=== PATIENT | female | born 1975 | race Caucasian/White ===

== ENCOUNTER 2017-11-15 23:29 | Emergency (ER) | payer OTHER, MEDICAID, SELFPAY ==
[2017-11-15 23:40] VITALS: BP 136/92; PULSE 118; RESP 18; TEMP 36.8; O2SAT 97; BMI 26.6
[2017-11-16] MEDS: TET,DIPH,PERTUSS(ACELL),VAC/PF 0.5 ML SYRINGE IM (00:14)
--- NOTE | 2017-11-16 00:14 | ED_ITS ---
HPI - Wound/Laceration General Chief Complaint: Wound/Laceration Stated Complaint: CUT RIGHT THIGH THINKS NEEDS STITCHES Time Seen by Provider: 11/15/17 23:46 Source: patient, family and RN notes reviewed Mode of arrival: ambulatory Limitations: no limitations History of Present Illness HPI narrative: Patient is a 42 year female who presents with right leg laceration. She was cutting a sandwich on the knife slipped cutting her right eye. She was wearing shorts. Onset (ago): minute(s) Place: home Context: accidental Associated symptoms: none Related Data Home Medications Medication Instructions Recorded Confirmed venlafaxine 2 tab PO BID #0 07/04/17 11/03/17 trazodone 100 mg PO HS #0 08/11/17 11/03/17 hydroxyzine pamoate 25 mg capsule 25 mg PO Q6-8H PRN 11/03/17 11/03/17 ranitidine 150 mg capsule 150 mg PO BEDTIME 11/03/17 11/03/17 Previous Rx's Medication Instructions Recorded ibuprofen 800 mg tablet 800 mg PO TID #60 tab 11/03/17 methylprednisolone 4 mg tablets in See Label Instructions PO PER PKG 11/03/17 a dose pack DIR #21 each Allergies Allergy/AdvReac Type Severity Reaction Status Date / Time meperidine [From DEMEROL] Allergy Mild Verified 11/15/17 23:45 Review of Systems Review of Systems All systems reviewed & are unremarkable except as noted in HPI and below Constitutional Denies chills, Denies fever(s), Denies lethargy and Denies weakness Cardiovascular Denies irregular heart rhythm, Denies palpitations and Denies dyspnea on exertion Respiratory Denies cough and Denies dyspnea on exertion Gastrointestinal Gastrointestinal: Denies abdominal pain, Denies diarrhea, Denies nausea and Denies vomiting Musculoskeletal Denies back pain, Denies muscle weakness, Denies numbness and Denies tingling Integumentary/Breasts Reports as per HPI Neurologic Denies numbness, Denies tingling and Denies weakness Endocrine Denies palpitations [facility] Social History Smoking Status: Never smoker Exam Narrative Exam Narrative: GENERAL: Young female extremely anxious CARDIOVASCULAR: peripheral pulses in tact, cap refill <2 sec RESPIRATORY: No respiratory distress, speaks in full sentences without difficulty EXTREMITIES: Normal range of motion, no clubbing or edema. Neurovascularly intact NEUROLOGICAL: Cranial nerves II through XII grossly intact. Normal gait and speech. SKIN: Right thigh a 4 cm last patient with good skin approximation small amount of adipose tissue exposed. Procedures Joint Aspiration/Injection Laceration 1: Site: lower extremity (Right lateral leg) Side (If applicable): right Size (cm): 4 Description: linear Depth: simple, single layer Local Anesthetic: lidocaine 1% and with epi Amount of anesthesia used (mL): 5 Pre-repair: irrigated extensively Skin layer closed with: nylon Size (cm): 4-0 Number of sutures: 3 Technique: simple, interrupted Course Orders Ordered: Discontinued Medications Diphtheria/Tetanus/Acell Pertussis (Adacel) 0.5 ml IM .ONCE ONE Stop: 11/16/17 00:13 Last Admin: 11/16/17 00:14 Dose: 0.5 ml Last Vital Signs Temp 98.3 F 11/15/17 23:40 Pulse 118 H 11/15/17 23:40 Resp 18 11/15/17 23:40 BP 136/92 H 11/15/17 23:40 Pulse Ox 97 11/15/17 23:40 Discharge Plan Departure Patient Disposition: Home, Self-Care Clinical Impression: Laceration of leg, right Discharge Date/Time: 11/16/17 00:32 Interventions: ED Discharge Assessment Last Done: 11/16/17 00:31 Instructions: DI for Laceration Repair -- Simple Activity Restrictions/Additional Instructions: 1. Have your suture removed in 5-7 days, you may go to walk-in clinic, return to the ER or call your primary care physician. 2. No soaking in water including dishes, bathtubs, Lakes, swimming pools etc 3. Signs of infection include, but not limited to, increased redness, increased swelling, increased pain, fever and purulent drainage, if the symptoms should arise, you may need an antibiotic and you should have a reevaluation either by your primary care provider or by the emergency department. Prescriptions: No Action hydroxyzine pamoate 25 mg capsule 25 mg PO Q6-8H PRNRF: 0 ranitidine HCl 150 mg capsule 150 mg PO BEDTIME RF: 0 ibuprofen 800 mg tablet 800 mg PO TID Qty: 60 RF: 2 methylprednisolone 4 mg tablets,dose pack See Label Instructions PO PER PKG DIR Qty: 21 RF: 0 venlafaxine 75 MG tablet 2 tab PO BID Qty: 0 RF: 0 trazodone 50 MG tablet 100 mg PO HS Qty: 0 RF: 0
== END 2017-11-16 00:32 | disposition home or self-care (01) ==
PROVIDERS: Emergency Provider Emergency Medicine
DX: S71.111A Laceration without foreign body, right thigh, initial encounter (principal); W26.0XXA Contact with knife, initial encounter
CPT/HCPCS: 12002; 90471; 99283; 90715

== ENCOUNTER → 2018-02-02 20:16 | Outpatient (CLI) | payer OTHER, MEDICAID, SELFPAY ==
--- NOTE | 2018-02-02 20:23 | DI.RAD.S_ITS ---
PROCEDURE: XR SHOULDER RT MIN 2V INDICATIONS: pain in Right shoulder TECHNIQUE: 3 views of the shoulder were acquired. COMPARISON: None. FINDINGS: Bones: No fractures or dislocations. No suspicious bony lesions but there is a relatively prominent degree of degenerative osteophytic change at the a.c. joint. Visualized ribs appear intact. Soft tissues: No suspicious soft tissue calcifications. IMPRESSION: A.c. joint osteoarthritis is relatively prominent, no trauma found. Dictated by: Dave Ferrell M.D. on 02/03/2018 at 8:55 Approved by: Dave Ferrell M.D. on 02/03/2018 at 8:55
== END ==
PROVIDERS: Visit Provider Physician Assistant
DX: M19.011 Primary osteoarthritis, right shoulder (principal); M25.511 Pain in right shoulder
CPT/HCPCS: 73030

== ENCOUNTER → 2018-02-10 20:39 | Outpatient (CLI) | payer OTHER, MEDICAID, SELFPAY ==
--- NOTE | 2018-02-10 20:44 | DI.RAD.S_ITS ---
PROCEDURE: XR SACRUM COCCYX MIN 2V INDICATIONS: LOW BACK STIFFNESS, PAIN TECHNIQUE: 3 views of the sacrum and coccyx acquired. COMPARISON: None. FINDINGS: Bones: No fractures or dislocations. No suspicious bony lesions. Soft tissues: Visualized bowel gas pattern is normal. No suspicious soft tissue densities. IMPRESSION: No evidence of sacroiliitis or ankylosis. No fracture or dislocation. Dictated by: Eligio Donaldson M.D. on 02/10/2018 at 21:06 Approved by: Eligio Donaldson M.D. on 02/10/2018 at 21:07
== END ==
PROVIDERS: Visit Provider Physician Assistant
DX: M53.88 Other specified dorsopathies, sacral and sacrococcygeal region (principal); M54.5 Low back pain
CPT/HCPCS: 72220

== ENCOUNTER → 2018-02-17 17:41 | Outpatient (CLI) | payer OTHER, MEDICAID, SELFPAY ==
--- NOTE | 2018-02-17 17:45 | DI.RAD.S_ITS ---
PROCEDURE: XR HIP W PEL IF DONE LT MIN 4V INDICATIONS: JOINT PAIN TECHNIQUE: AP pelvis with lateral view(s) of the left and right hip(s). COMPARISON: [facility], , XR SACRUM COCCYX MIN 2V, 02/10/2018, 20:21. FINDINGS: Bones: No fractures or dislocations. Pelvic ring appears intact. No suspicious bony lesions. Soft tissues: The visualized bowel gas pattern is normal. No suspicious soft tissue calcifications. IMPRESSION: No definite radiographic abnormality. If pain persists, consider cross sectional imaging such as CT or MRI for further assessment. Dictated by: Eladio Mcdermott [facility] Interpreted: Madison Clements MD on 02/18/2018 at 9:55 Approved by: Madison Clements M.D. on 02/18/2018 at 12:00
[2018-02-17 18:14] LABS: Add Manual Diff / Slide Review NO; Basophils Percent Auto 0.7 % (0-2); Eosinophils Percent Auto 1.4 % (2-4); Hematocrit 43.1 % (36-46); Hemoglobin 14.2 g/dL (12.0-16.0); Lymphocytes Percent Auto 32.2 % (25-40); Mean Corpuscular HGB Conc 32.9 % (30-36); Mean Corpuscular Hemoglobin 30.7 PG (26-34); Mean Corpuscular Volume 93.1 fL (80-100); Monocytes Percent Auto 9.2 % (3-14); Neutrophils Absolute Auto 4100 /uL (3000-5900); Neutrophils Percent Auto 56.5 % (50-75); Platelet Count 347 X10^3/uL (150-400); Red Blood Cell Count 4.63 X10^6/uL (4.0-5.2); Red Cell Distribution Width 12.7 % (11.6-14.8); White Blood Cell Count 7.2 X10^3/uL (4.5-11.0)
[2018-02-17 18:42] LABS: Erythrocyte Sedimentation Rate 6 MM/HR (0-20)
[2018-02-17 19:14] LABS: C-Reactive Protein Quant < 0.5 mg/dL (<1.0)
[2018-02-17 19:38] LABS: Thyroid Stimulating Hormone 1.95 uIU/mL (0.47-4.68)
== END ==
PROVIDERS: PCP Family Medicine; Visit Provider Physician Assistant
DX: M25.50 Pain in unspecified joint (principal)
CPT/HCPCS: 36415; 73522; 84443; 85025; 85651; 86140

== ENCOUNTER 2018-03-08 22:56 | Emergency (ER) | payer OTHER, MEDICAID, SELFPAY ==
[2018-03-08 23:00] VITALS: BP 123/71; PULSE 91; RESP 14; TEMP 36.9; O2SAT 99
--- NOTE | 2018-03-09 00:04 | PC.NURSE ---
2347: Patient walked out of the ER with steady gait.
--- NOTE | 2018-03-09 00:05 | PC.NURSE ---
Patient out at Nurse's Station, states she is concerned about her long wait time. States, why is it taking so long for the doctor to see me. I'm in so much pain...but I'm not here for pain meds. I'm just here to figure out what's wrong. I explained to her that the doctor would be in to see her as soon as he is able. She returned to her room with a steady gait.
--- NOTE | 2018-03-09 00:07 | PC.NURSE ---
Patient at nurse's station again, walking with steady gait, A&Ox4. States she is concerned about wait time and that nothing has been done yet. I answered her questions and listened to her concerns. She states I might want to leave and get an ambulance to take me to [facility]. I told her I could not make her stay and she may walk out if she would like to leave.
--- NOTE | 2018-03-09 00:10 | PC.NURSE ---
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
--- NOTE | 2018-03-09 00:10 | PC.NURSE ---
Patient again pacing in hallway and expressing concerns about wait time and pain at nurse's station. Stating, somebody needs to get me an ambulance to [facility]. I explained to her that we will not be calling an ambulance or transferring her since she has not seen a provider. I explained to her that should she decide she wants to go to [facility] then she will not be held here and can leave.
--- NOTE | 2018-03-09 00:13 | PC.NURSE ---
patient reports intermittent loss of coordination, none at this time. No other associated symptoms besides headache.
== END 2018-03-08 23:47 | disposition left against medical advice (07) ==
PROVIDERS: Emergency Provider Emergency Medicine; PCP Family Medicine
DX: R51 Headache (principal)
CPT/HCPCS: 99281; 99282

== ENCOUNTER 2018-03-13 02:33 | Emergency (ER) | payer OTHER, MEDICAID, SELFPAY ==
[2018-03-13 02:35] VITALS: BP 139/92; PULSE 120; RESP 18; TEMP 36.9; O2SAT 97
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
[2018-03-13] MEDS: IBUPROFEN 400 MG TABLET 800 MG PO (03:13)
[2018-03-13 03:24] VITALS: BP 130/86; PULSE 108; RESP 18; TEMP 36.8; O2SAT 98
== END 2018-03-13 03:26 | disposition home or self-care (01) ==
PROVIDERS: Emergency Provider Emergency Medicine; PCP Family Medicine
DX: S00.03XA Contusion of scalp, initial encounter (principal); F10.929 Alcohol use, unspecified with intoxication, unspecified; Y04.2XXA Assault by strike against or bumped into by another person, initial encounter
CPT/HCPCS: 99282; 99283

== ENCOUNTER 2018-03-15 18:26 | Emergency (ER) | payer OTHER, MEDICAID, SELFPAY ==
[2018-03-15 18:29] VITALS: BP 141/87; PULSE 110; RESP 22; TEMP 36.4; O2SAT 99
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
--- NOTE | 2018-03-15 20:26 | DI.CT.S_ITS ---
PROCEDURE: CT FACIAL BONES WO CON INDICATIONS: Left periorbital, bahai, mandible eccymoses/contusions 03/13 TECHNIQUE: Noncontrast 2.5 mm thick axial images acquired from the mandible through the frontal sinuses, with coronal and sagittal reformatting. For radiation dose reduction, the following was used: automated exposure control, adjustment of mA and/or kV according to patient size. COMPARISON: None. FINDINGS: Image quality: Excellent. Bones and teeth: Orbital neville are intact. Sinus neville show no fracture or deformity. Nasal bones and septum are intact. Mild anterior nasoseptal deviation to the right is seen. There is mid nasal septal deviation to the left with a bony spur. Visualized portions of the mandible demonstrate no fractures or subluxation. Zygomatic arches are intact. Pterygoid plates are intact. Visualized portions of the skull base and auditory canals are intact. Sinuses: 8mm retention cyst versus mucocele is noted in medial aspect of right maxillary sinus. Rest of paranasal sinuses are aerated, without fluid levels, mucosal thickening, or mucoceles. Mastoid air cells are aerated. Soft tissues: No edema, masses, or fluid collections. No enlarged lymph nodes. No soft tissue lacerations or debris. Vascular: Visualized vascular structures appear normal in the absence of contrast. Bony vascular foramina and canals are intact. IMPRESSION: No acute facial bone or nasal bone fracture. No orbital wall fracture. Small retention cyst versus mucocele in right maxillary sinus. Rest of bilateral paranasal sinuses are well aerated. Dictated by: Eligio Donaldson M.D. on 03/15/2018 at 21:04 Approved by: Eligio Donaldson M.D. on 03/15/2018 at 21:08
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
[2018-03-15] MEDS: IBUPROFEN 400 MG TABLET 800 MG PO (20:35)
[2018-03-15 21:37] VITALS: BP 140/91; PULSE 86; RESP 16; TEMP 36.7; O2SAT 100
== END 2018-03-15 21:38 | disposition home or self-care (01) ==
PROVIDERS: Emergency Provider Internal Medicine; PCP Family Medicine
DX: S00.83XA Contusion of other part of head, initial encounter (principal); S20.219A Contusion of unspecified front wall of thorax, initial encounter; S30.1XXA Contusion of abdominal wall, initial encounter; S20.229A Contusion of unspecified back wall of thorax, initial encounter; Y04.8XXA Assault by other bodily force, initial encounter
CPT/HCPCS: 70486; 99283; 99284

== ENCOUNTER 2018-05-20 18:59 | Emergency (ER) | payer OTHER, MEDICAID, SELFPAY ==
[2018-05-20 19:04] VITALS: BP 141/93; PULSE 108; RESP 15; TEMP 37; O2SAT 94; BMI 27.4
== END 2018-05-20 19:19 | disposition left against medical advice (07) ==
PROVIDERS: Emergency Provider Emergency Medicine; PCP Student in an Organized Health Care Education/Training Program
DX: M54.2 Cervicalgia (principal)
CPT/HCPCS: 99281; 99282

== ENCOUNTER → 2018-07-15 20:28 | Outpatient (CLI) | payer OTHER, MEDICAID, SELFPAY ==
[2018-07-15 20:48] LABS: Add Manual Diff / Slide Review NO; Basophils Percent Auto 0.7 % (0-2); Eosinophils Percent Auto 1.5 % (2-4); Hemoglobin 13.7 g/dL (12.0-16.0); Lymphocytes Percent Auto 17.8 % (25-40); Mean Corpuscular HGB Conc 33.4 % (30-36); Mean Corpuscular Hemoglobin 31.6 PG (26-34); Mean Corpuscular Volume 94.6 fL (80-100); Monocytes Percent Auto 8.3 % (3-14); Neutrophils Absolute Auto 6100 /uL (1500-7000); Neutrophils Percent Auto 71.7 % (50-75); Platelet Count 353 X10^3/uL (150-400); Red Blood Cell Count 4.33 X10^6/uL (4.0-5.2); Red Cell Distribution Width 12.4 % (11.6-14.8); White Blood Cell Count 8.4 X10^3/uL (4.5-11.0)
[2018-07-15 21:05] LABS: Alanine Aminotransferase 24 IU/L (9-52); Albumin 4.6 g/dL (3.5-5.0); Albumin Globulin Ratio 1.4 (1.0-2.8); Alkaline Phosphatase 56 U/L (38-126); Amylase 82 U/L (30-110); Aspartate Aminotransferase 24 IU/L (14-36); Bilirubin Total 0.3 mg/dL (0.2-1.3); Blood Urea Nitrogen 12 mg/dL (7-17); Calcium 9.5 mg/dL (8.4-10.2); Carbon Dioxide 30 mmol/L (22-32); Chloride 99 mmol/L (98-107); Estimated Glomerular Filt Rate > 60.0 mL/min (>60); Globulin 3.4 g/dL (1.7-4.1); Glucose 100 mg/dL (70-100); HEMOLYSIS < 15 (0-50); Lipase 72 U/L (23-300); Potassium 4.9 mmol/L (3.4-5.1); Sodium 138 mmol/L (137-145)
== END ==
PROVIDERS: Family Provider Student in an Organized Health Care Education/Training Program; PCP Student in an Organized Health Care Education/Training Program; Visit Provider Physician Assistant
DX: R10.9 Unspecified abdominal pain (principal)
CPT/HCPCS: 36415; 80053; 82150; 83690; 85025

== ENCOUNTER 2018-07-24 17:39 | Emergency (ER) | payer OTHER, MEDICAID, SELFPAY ==
[2018-07-24 18:09] VITALS: BP 135/84; PULSE 99; RESP 16; TEMP 37.5; O2SAT 100; BMI 27.4
[2018-07-24 18:30] LABS: Add Manual Diff / Slide Review NO; Basophils Absolute Auto 0 /uL (0-100); Basophils Percent Auto 0.7 % (0-2); Eosinophils Absolute Auto 100 /uL (0-450); Eosinophils Percent Auto 1.9 % (2-4); Hematocrit 40.7 % (36-46); Hemoglobin 13.4 g/dL (12.0-16.0); Lymphocytes Absolute Auto 1900 /uL (1100-4500); Lymphocytes Percent Auto 31.4 % (25-40); Mean Corpuscular Hemoglobin 31.3 PG (26-34); Mean Corpuscular Volume 94.9 fL (80-100); Monocytes Absolute Auto 400 /uL (0-900); Monocytes Percent Auto 6.4 % (3-14); Neutrophils Absolute Auto 3700 /uL (1500-7000); Neutrophils Percent Auto 59.6 % (50-75); Platelet Count 361 X10^3/uL (150-400); Red Blood Cell Count 4.29 X10^6/uL (4.0-5.2); Red Cell Distribution Width 12.2 % (11.6-14.8); White Blood Cell Count 6.2 X10^3/uL (4.5-11.0)
[2018-07-24 18:39] LABS: Alanine Aminotransferase 27 IU/L (9-52); Albumin 4.4 g/dL (3.5-5.0); Albumin Globulin Ratio 1.4 (1.0-2.8); Alkaline Phosphatase 46 U/L (38-126); Aspartate Aminotransferase 22 IU/L (14-36); Bilirubin Total 0.3 mg/dL (0.2-1.3); Blood Urea Nitrogen 12 mg/dL (7-17); Calcium 8.9 mg/dL (8.4-10.2); Carbon Dioxide 28 mmol/L (22-32); Chloride 101 mmol/L (98-107); Estimated Glomerular Filt Rate > 60.0 mL/min (>60); Globulin 3.1 g/dL (1.7-4.1); Glucose 134 mg/dL (70-100); HEMOLYSIS < 15 (0-50); Lipase 62 U/L (23-300); Potassium 3.9 mmol/L (3.4-5.1); Sodium 138 mmol/L (137-145); Total Protein 7.5 g/dL (6.3-8.2)
--- NOTE | 2018-07-24 19:11 | ED.ABDPAIN ---
HPI - Abdominal Pain General Chief Complaint: Abdominal Pain Stated Complaint: gull bladder pain Time Seen by Provider: 07/24/18 17:57 Source: patient Mode of arrival: ambulatory Limitations: no limitations History of Present Illness HPI narrative: patient is a 43-year-old female who presents with right upper quadrant pain. It has been off and on for the last 3 days. She says she feels full when she eats. No nausea or vomiting. sHe has had any fever. The pain is nonradiating. She sometimes has intermittent right shoulder pain anyway difficult to tell if it is associated. Now complaining that the IV is hurting her arm. MD complaint: abdominal pain Onset (ago): day(s) (3) Pain Consistency: intermittent Location: RUQ Related Data Home Medications Medication Instructions Recorded Confirmed trazodone 100 mg PO HS #0 08/11/17 07/15/18 hydroxyzine pamoate 25 mg capsule 25 mg PO Q6-8H PRN 11/03/17 07/15/18 ranitidine 150 mg capsule 150 mg PO BEDTIME 11/03/17 07/15/18 alprazolam 0.5 mg tablet 0.5 mg PO BID 07/15/18 07/15/18 Previous Rx's Medication Instructions Recorded hydrocortisone 2.5 % topical cream 1 applictn TOP BID #20 gram 03/30/18 venlafaxine 75 mg tablet 225 mg PO BID #180 tab 04/07/18 ibuprofen 800 mg tablet 800 mg PO Q8H PRN 30 Days #90 tab 04/26/18 methocarbamol 750 mg tablet 750 mg PO BEDTIME #30 tab 06/22/18 Allergies Allergy/AdvReac Type Severity Reaction Status Date / Time meperidine [From DEMEROL] Allergy Mild Itching Verified 07/24/18 18:14 Review of Systems Review of Systems GENERAL: Denies chills, fatigue, malaise, fever, sweats, travel HEENT: Denies sinus pain, ear pain, sore throat, difficulty swallowing, neck pain RESPIRATORY: Denies dyspnea, cough, wheezing, hemoptysis, sputum. CARDIOVASCULAR: Denies chest pain, palpitations, orthopnea, edema GASTROINTESTINAL: See HPI : Denies dysuria, frequency, incontinence, hematuria, urinary retention, flank pain. MUSCULOSKELETAL: Denies weakness, joint pain, or bony pain SKIN: No rash, no erythema, no pruritus NEUROLOGIC: Denies weakness, dizziness, headache, numbness, change in speech, confusion PSYCHIATRIC: No concerning psychosocial issues. 12 point review of systems is negative except for those stated above and HPI PFSH Medical History Alcohol abuse (Acute) Chronic right shoulder pain (Chronic) Depression (Chronic) Fibromyalgia (Chronic) Tendinitis (Chronic) Surgical History History of ankle surgery (Resolved) Social History Smoking Status: Never smoker alcohol intake: current Exam Initial Vital Signs Initial Vital Signs: Vital Signs Temperature 99.5 F 07/24/18 18:09 Pulse Rate 99 H 07/24/18 18:09 Respiratory Rate 16 07/24/18 18:09 Blood Pressure 135/84 07/24/18 18:09 Pulse Oximetry 100 07/24/18 18:09 GENERAL: Well-appearing, well-nourished and in no acute distress. coloring with daughter HEENT: Head atraumatic,EOMI, pupils reactive, CARDIOVASCULAR: Regular rate and rhythm without murmurs, rubs or gallops. RESPIRATORY: Breath sounds equal bilaterally, no wheezes rales or rhonchi. ABDOMEN: Soft, mild right upper quadrant pain mild epigastric pain no guarding or rebound : No CVA tenderness EXTREMITIES: Normal range of motion, no clubbing or edema. Neurovascularly intact NEUROLOGICAL: Alert and oriented x4.Normal gait and speech. Cranial nerves II through XII grossly intact. SKIN: Warm, dry, no laceration, no petechiae, no rashes or lesions. Course Orders Ordered: ED Orders 07/24/18 18:15 Complete Blood Count AUTO DIFF Stat Comprehensive Metabolic Panel Stat Lipase Stat 07/24/18 19:14 US abdomen complete Stat Discontinued Medications Ketorolac Tromethamine (Toradol) 30 mg IV NOW ONE Stop: 07/24/18 19:15 Last Admin: 07/24/18 19:20 Dose: 30 mg Vital Signs - 8 hr 07/24/18 18:09 07/24/18 19:25 Temperature 99.5 F Pulse Rate 99 H 82 Respiratory Rate 16 16 Blood Pressure 135/84 Blood Pressure [Left Arm] 131/79 Pulse Oximetry 100 99 MDM - Abdominal Pain Lab Data Attestation: I reviewed the patient's lab results. Result diagrams: 07/24/18 18:15 07/24/18 18:15 Lab Results 07/24/18 07/24/18 Range/Units 18:15 18:15 WBC 6.2 (4.5-11.0) X10^3/uL RBC 4.29 (4.0-5.2) X10^6/uL Hgb 13.4 (12.0-16.0) g/dL Hct 40.7 (36-46) % MCV 94.9 (80-100) fL MCH 31.3 (26-34) PG MCHC 33.0 (30-36) % RDW 12.2 (11.6-14.8) % Plt Count 361 (150-400) X10^3/uL Neut % (Auto) 59.6 (50-75) % Lymph % (Auto) 31.4 (25-40) % Webster % (Auto) 6.4 (3-14) % Eos % (Auto) 1.9 L (2-4) % Baso % (Auto) 0.7 (0-2) % Neut # (Auto) 3700 (8510-6445) /uL Lymph # (Auto) 1900 (3040-3572) /uL Webster # (Auto) 400 (0-900) /uL Eos # (Auto) 100 (0-450) /uL Baso # (Auto) 0 (0-100) /uL Sodium 138 (137-145) mmol/L Potassium 3.9 (3.4-5.1) mmol/L Chloride 101 (98-107) mmol/L Carbon Dioxide 28 (22-32) mmol/L BUN 12 (7-17) mg/dL Creatinine 1.00 (0.52-1.04) mg/dL Estimated GFR > 60.0 (>60) mL/min BUN/Creatinine Ratio 12.0 (6-22) Glucose 134 H (70-100) mg/dL Calcium 8.9 (8.4-10.2) mg/dL Total Bilirubin 0.3 (0.2-1.3) mg/dL AST 22 (14-36) IU/L ALT 27 (9-52) IU/L Alkaline Phosphatase 46 (38-126) U/L Total Protein 7.5 (6.3-8.2) g/dL Albumin 4.4 (3.5-5.0) g/dL Globulin 3.1 (1.7-4.1) g/dL Albumin/Globulin Ratio 1.4 (1.0-2.8) Lipase 62 (23-300) U/L Imaging Data US - abdomen: Radiologist's impression: PROCEDURE: US ABDOMEN COMPLETE INDICATIONS: RIGHT UPPER QUADRANT PAIN TECHNIQUE: Real-time scanning was performed of the abdominal and retroperitoneal organs, with image documentation. COMPARISON: None. FINDINGS: Liver: Liver is normal in size and homogeneous in echotexture. Gallbladder: The gallbladder wall measures 1.9 mm in diameter. Mobile stones are present within the gallbladder fundus. No pericholecystic fluid or sonographic Hairston sign. Biliary ducts: Intrahepatic bile ducts are non-dilated. Extrahepatic bile duct caliber measures 5.0 mm. Normal is 6-7 mm or less in diameter, or 10 mm or less post-cholecystectomy. Pancreas: Visualized portions of the pancreas are sonographically normal. The distal pancreas is nonvisualized due to to overlying bowel gas. Spleen: Spleen is normal in size and homogeneous in echotexture. Kidneys: Kidneys are normal in size and echotexture. Right kidney measures 11.3 cm long; left kidney measures 10.1 cm long. No hydronephrosis or nephrolithiasis. No solid masses. Aorta: Visualized aorta is normal in caliber at less than 3 cm. Iliacs: Proximal common iliac arteries are normal in caliber at less than 2.5 cm. IVC: Intrahepatic inferior vena cava is patent. Miscellaneous: No free abdominal fluid. IMPRESSION: Cholelithiasis. No findings to suggest choledocholithiasis or acute cholecystitis. Dictated by: Mally Cardona M.D. on 07/24/2018 at 20:26 MDM Narrative Medical decision making narrative: the patient has no sign of obstruction, bilirubin is normal. No sign of acute cholecystitis no fever or leukocytosis. At this time recommend outpatient follow-up and elective surgery. Discussed warning signs and when to return to the ED. Discharge Plan Departure Patient Disposition: Home Clinical Impression: Cholelithiasis Discharge Date/Time: 07/24/18 20:30 Interventions: ED Discharge Assessment Last Done: 07/24/18 20:33 Instructions: DI for Gallstones Activity Restrictions/Additional Instructions: *You have been diagnosed with gallstone *What to do: you will likely need on elective gallbladder surgery. At this time it is nonemergent. You do have gallstones noted. They are not causing any blockage or infection at this. *Continue to take medications as directed Motrin 800 mg every 8 hr if needed for pain *Follow up with your primary care provider in 2-3 days *Return to ER if you should have fever, increasing right upper quadrant pain, persistent vomiting or any new, worsening or concerning symptoms Prescriptions: No Action alprazolam 0.5 mg tablet 0.5 mg PO BID RF: 0 hydroxyzine pamoate 25 mg capsule 25 mg PO Q6-8H PRNRF: 0 ranitidine HCl 150 mg capsule 150 mg PO BEDTIME RF: 0 hydrocortisone 2.5 % cream 1 applictn TOP BID Qty: 20 RF: 0 trazodone 50 MG tablet 100 mg PO HS Qty: 0 RF: 0 venlafaxine 75 mg tablet 225 mg PO BID Qty: 180 RF: 3 ibuprofen 800 mg tablet 800 mg PO Q8H PRN (Reason: pain) 30 Days Qty: 90 RF: 2 methocarbamol 750 mg tablet 750 mg PO BEDTIME Qty: 30 RF: 5 Referrals: Chevy Marmolejo MD [Primary Care Provider] -
--- NOTE | 2018-07-24 19:14 | DI.US.S_ITS ---
PROCEDURE: US ABDOMEN COMPLETE INDICATIONS: RIGHT UPPER QUADRANT PAIN TECHNIQUE: Real-time scanning was performed of the abdominal and retroperitoneal organs, with image documentation. COMPARISON: None. FINDINGS: Liver: Liver is normal in size and homogeneous in echotexture. Gallbladder: The gallbladder wall measures 1.9 mm in diameter. Mobile stones are present within the gallbladder fundus. No pericholecystic fluid or sonographic Hairston sign. Biliary ducts: Intrahepatic bile ducts are non-dilated. Extrahepatic bile duct caliber measures 5.0 mm. Normal is 6-7 mm or less in diameter, or 10 mm or less post-cholecystectomy. Pancreas: Visualized portions of the pancreas are sonographically normal. The distal pancreas is nonvisualized due to to overlying bowel gas. Spleen: Spleen is normal in size and homogeneous in echotexture. Kidneys: Kidneys are normal in size and echotexture. Right kidney measures 11.3 cm long; left kidney measures 10.1 cm long. No hydronephrosis or nephrolithiasis. No solid masses. Aorta: Visualized aorta is normal in caliber at less than 3 cm. Iliacs: Proximal common iliac arteries are normal in caliber at less than 2.5 cm. IVC: Intrahepatic inferior vena cava is patent. Miscellaneous: No free abdominal fluid. IMPRESSION: Cholelithiasis. No findings to suggest choledocholithiasis or acute cholecystitis. Dictated by: Mally Cardona M.D. on 07/24/2018 at 20:26 Approved by: Mally Cardona M.D. on 07/24/2018 at 20:30
[2018-07-24] MEDS: KETOROLAC 60 MG/2 ML VIAL 30 MG IV (19:20)
[2018-07-24 19:25] VITALS: BP 131/79; PULSE 82; RESP 16; O2SAT 99
== END 2018-07-24 20:30 | disposition home or self-care (01) ==
PROVIDERS: Emergency Medicine; Emergency Provider Emergency Medicine; PCP Student in an Organized Health Care Education/Training Program
DX: K80.20 Calculus of gallbladder without cholecystitis without obstruction (principal)
CPT/HCPCS: 36591; 76700; 80053; 83690; 85025; 96374; 99283; 99284; J1885

== ENCOUNTER → 2018-07-28 15:06 | Outpatient (CLI) | payer OTHER, MEDICAID, SELFPAY ==
[2018-07-28 16:11] LABS: Cholesterol 207 mg/dL (140-199); HDL Cholesterol 48 mg/dL (40-60); LDL Cholesterol Calculated 137 mg/dL (<100); Triglycerides 109 mg/dL (35-150)
== END ==
PROVIDERS: PCP Student in an Organized Health Care Education/Training Program; Visit Provider Student in an Organized Health Care Education/Training Program
DX: Z13.220 Encounter for screening for lipoid disorders (principal)
CPT/HCPCS: 36415; 80061

== ENCOUNTER 2018-08-08 13:43 | Emergency (ER) | payer OTHER, MEDICAID, SELFPAY ==
[2018-08-08 13:45] VITALS: BP 116/76; PULSE 90; RESP 16; TEMP 36.7; O2SAT 99; BMI 27.4
[2018-08-08 16:33] VITALS: BP 105/76; PULSE 89; RESP 21; O2SAT 95
--- NOTE | 2018-08-08 17:13 | ED.ABDPAIN ---
HPI - Abdominal Pain <Da Barcenas DO - Last Filed: 08/09/18 08:12> General Chief Complaint: Abdominal Pain Stated Complaint: GALLBLADDER PAIN Time Seen by Provider: 08/08/18 16:51 Source: patient Mode of arrival: ambulatory Limitations: no limitations History of Present Illness HPI narrative: Patient is a 43-year-old female with known gallbladder disease. This was determined by right upper quadrant ultrasound several weeks ago after she was having right upper quadrant pain. This is ordered by her primary doctor. She was given a prescription for tramadol. She states that over the past couple days she has had worsening right upper quadrant pain. No nausea. She did not take her pain medication today. She has a referral to see General surgery but has not seen them yet. She came in for further evaluation. Related Data Home Medications Medication Instructions Recorded Confirmed trazodone 100 mg PO HS #0 08/11/17 07/28/18 hydroxyzine pamoate 25 mg capsule 25 mg PO Q6-8H PRN 11/03/17 07/28/18 ranitidine 150 mg capsule 150 mg PO BEDTIME 11/03/17 07/28/18 alprazolam 0.5 mg tablet 0.5 mg PO BID 07/15/18 07/28/18 Previous Rx's Medication Instructions Recorded venlafaxine 75 mg tablet 225 mg PO BID #180 tab 04/07/18 methocarbamol 750 mg tablet 750 mg PO BEDTIME #30 tab 06/22/18 ibuprofen 800 mg tablet 800 mg PO Q8H PRN #90 tab 07/27/18 beclomethasone dipropionate 1 spray NASAL BID #25 gram 07/28/18 (aqueous) 42 mcg (0.042 %) nasal spray betamethasone dipropionate 0.05 % 1 applictn TOP BID #60 ml 07/28/18 lotion tramadol 50 mg tablet 50 mg PO BEDTIME 30 Days #30 tab 07/28/18 hydrocodone-acetaminophen 1 tab PO Q4-6H PRN #10 tab 08/08/18 Allergies Allergy/AdvReac Type Severity Reaction Status Date / Time meperidine [From DEMEROL] Allergy Mild Itching Verified 08/08/18 13:45 Review of Systems <DO Chris Brush Last Filed: 08/09/18 08:12> Constitutional Denies fever(s) and Denies headache(s) ENT Ears, Nose, Mouth, and Throat: Denies headache(s) Cardiovascular Denies chest pain and Denies dyspnea Respiratory Denies dyspnea Gastrointestinal Gastrointestinal: Reports abdominal pain, Denies change in bowel habits, Denies nausea and Denies vomiting Genitourinary Denies dysuria Musculoskeletal Denies myalgias and Denies arthralgias Integumentary/Breasts Denies lesions and Denies rash Neurologic Denies behavioral changes and Denies headache(s) Psychiatric Denies behavioral changes Hematologic/Lymphatic Comments: Not on anticoagulation Allergic/Immunologic Denies urticaria Exam <Da Barcenas DO - Last Filed: 08/09/18 08:12> Initial Vital Signs Initial Vital Signs: Vital Signs Temperature 98.1 F 08/08/18 13:45 Pulse Rate 90 08/08/18 13:45 Respiratory Rate 16 08/08/18 13:45 Blood Pressure 116/76 08/08/18 13:45 Pulse Oximetry 99 08/08/18 13:45 Const General: cooperative, comfortable, well developed, well groomed and No acute distress Orientation: alert, awake and oriented x3 HENMT Head: normal to inspection and normocephalic Resp Effort & Inspection: normal respiratory effort Auscultation: clear to auscultation bilaterally Cardio Rate: regular rate Rhythm: regular rhythm GI Inspection: non-distended Palpation: soft, No firm, No guarding, No rigid and tender (Right upper quadrant) Skin Lesions: no lesions Rashes: no rashes Neuro General: alert, awake and oriented x3 Extrem General: normal to inspection and capillary refill normal Psych Appearance: grossly normal and well kempt <Jhoan Jaquez DO - Last Filed: 08/09/18 00:27> Initial Vital Signs Initial Vital Signs: Vital Signs Temperature 98.1 F 08/08/18 13:45 Pulse Rate 90 08/08/18 13:45 Respiratory Rate 16 08/08/18 13:45 Blood Pressure 116/76 08/08/18 13:45 Pulse Oximetry 99 08/08/18 13:45 Course <Da Bracenas DO - Last Filed: 08/09/18 08:12> Orders Ordered: Discontinued Medications Hydrocodone Bitart/Acetaminophen (Vicodin Prepack) 1 bottle MISC SEEINSTR ONE Stop: 08/08/18 19:22 Last Admin: 08/08/18 19:41 Dose: 1 bottle Sodium Chloride (Normal Saline 0.9%) 1,000 mls @ 125 mls/hr IV CONT BRANDYN Last Infusion: 08/08/18 19:34 Dose: 125 mls/hr Admin: 08/08/18 17:50 Dose: 125 mls/hr Morphine Sulfate (Morphine) 4 mg IV NOW ONE Stop: 08/08/18 17:14 Last Admin: 08/08/18 17:49 Dose: 4 mg Vital Signs - 8 hr 08/08/18 16:33 08/08/18 19:31 Pulse Rate 89 80 Respiratory Rate 21 20 Blood Pressure [Left Arm] 105/76 115/75 Pulse Oximetry 95 98 <Jhoan Jaquez DO - Last Filed: 08/09/18 00:27> Course Narrative: 43-year-old female received in sign-out from Dr. Barcenas. I performed an independent history and physical and have no significant additions. Ultrasound shows stones but no suggestion of cholelithiasis. Labs are unremarkable and pain is controlled. Orders Ordered: Discontinued Medications Hydrocodone Bitart/Acetaminophen (Vicodin Prepack) 1 bottle MISC SEEINSTR ONE Stop: 08/08/18 19:22 Last Admin: 08/08/18 19:41 Dose: 1 bottle Sodium Chloride (Normal Saline 0.9%) 1,000 mls @ 125 mls/hr IV CONT BRANDYN Last Infusion: 08/08/18 19:34 Dose: 125 mls/hr Admin: 08/08/18 17:50 Dose: 125 mls/hr Morphine Sulfate (Morphine) 4 mg IV NOW ONE Stop: 08/08/18 17:14 Last Admin: 08/08/18 17:49 Dose: 4 mg Vital Signs - 8 hr 08/08/18 16:33 08/08/18 19:31 Pulse Rate 89 80 Respiratory Rate 21 20 Blood Pressure [Left Arm] 105/76 115/75 Pulse Oximetry 95 98 MDM - Abdominal Pain <Da Barcenas DO - Last Filed: 08/09/18 08:12> Lab Data Result diagrams: 08/08/18 17:10 08/08/18 17:10 Lab Results 08/08/18 08/08/18 08/08/18 Range/Units 17:10 17:10 17:10 WBC 6.0 (4.5-11.0) X10^3/uL RBC 4.66 (4.0-5.2) X10^6/uL Hgb 14.4 (12.0-16.0) g/dL Hct 43.5 (36-46) % MCV 93.4 (80-100) fL MCH 30.9 (26-34) PG MCHC 33.1 (30-36) % RDW 12.3 (11.6-14.8) % Plt Count 354 (150-400) X10^3/uL Neut % (Auto) 51.5 (50-75) % Lymph % (Auto) 39.4 (25-40) % [place] % (Auto) 5.9 (3-14) % Eos % (Auto) 2.4 (2-4) % Baso % (Auto) 0.8 (0-2) % Neut # (Auto) 3100 (3156-8165) /uL Lymph # (Auto) 2400 (2813-6802) /uL [place] # (Auto) 400 (0-900) /uL Eos # (Auto) 100 (0-450) /uL Baso # (Auto) 0 (0-100) /uL Sodium 144 (137-145) mmol/L Potassium 4.4 (3.4-5.1) mmol/L Chloride 102 (98-107) mmol/L Carbon Dioxide 30 (22-32) mmol/L BUN 10 (7-17) mg/dL Creatinine 0.80 (0.52-1.04) mg/dL Estimated GFR > 60.0 (>60) mL/min BUN/Creatinine Ratio 12.5 (6-22) Glucose 103 H (70-100) mg/dL Calcium 8.9 (8.4-10.2) mg/dL Total Bilirubin 0.3 (0.2-1.3) mg/dL AST 33 (14-36) IU/L ALT 51 (9-52) IU/L Alkaline Phosphatase 53 (38-126) U/L Total Protein 8.4 H (6.3-8.2) g/dL Albumin 4.7 (3.5-5.0) g/dL Globulin 3.7 (1.7-4.1) g/dL Albumin/Globulin Ratio 1.3 (1.0-2.8) Lipase 36 (23-300) U/L Point of care testing: Point of Care Testing Test Results Negative Urine Dip Bedside Urine Glucose Negative Bedside Urine Bilirubin - Negative Bedside Urine Ketone - Negative Urine Specific [place] 1.010 Bedside Urine Occult Blood - Negative Bedside Urine pH 7.0 Bedside Urine Protein - Negative Bedside Urine Urobilinogen - Negative Bedside Urine Nitrite - Negative Bedside Urine Leukocytes - Negative Esterase MDM Narrative Medical decision making narrative: Patient with known gallbladder disease. With right upper quadrant pain. Care turned over to night provider change of shift to follow up on ultrasound and disposition. <Jhoan Jaquez DO - Last Filed: 08/09/18 00:27> Medical Records Attestation: I reviewed the patient's medical records. Lab Data Attestation: I reviewed the patient's lab results. Lab Results 08/08/18 08/08/18 08/08/18 Range/Units 17:10 17:10 17:10 WBC 6.0 (4.5-11.0) X10^3/uL RBC 4.66 (4.0-5.2) X10^6/uL Hgb 14.4 (12.0-16.0) g/dL Hct 43.5 (36-46) % MCV 93.4 (80-100) fL MCH 30.9 (26-34) PG MCHC 33.1 (30-36) % RDW 12.3 (11.6-14.8) % Plt Count 354 (150-400) X10^3/uL Neut % (Auto) 51.5 (50-75) % Lymph % (Auto) 39.4 (25-40) % [place] % (Auto) 5.9 (3-14) % Eos % (Auto) 2.4 (2-4) % Baso % (Auto) 0.8 (0-2) % Neut # (Auto) 3100 (2232-8417) /uL Lymph # (Auto) 2400 (5757-8420) /uL [place] # (Auto) 400 (0-900) /uL Eos # (Auto) 100 (0-450) /uL Baso # (Auto) 0 (0-100) /uL Sodium 144 (137-145) mmol/L Potassium 4.4 (3.4-5.1) mmol/L Chloride 102 (98-107) mmol/L Carbon Dioxide 30 (22-32) mmol/L BUN 10 (7-17) mg/dL Creatinine 0.80 (0.52-1.04) mg/dL Estimated GFR > 60.0 (>60) mL/min BUN/Creatinine Ratio 12.5 (6-22) Glucose 103 H (70-100) mg/dL Calcium 8.9 (8.4-10.2) mg/dL Total Bilirubin 0.3 (0.2-1.3) mg/dL AST 33 (14-36) IU/L ALT 51 (9-52) IU/L Alkaline Phosphatase 53 (38-126) U/L Total Protein 8.4 H (6.3-8.2) g/dL Albumin 4.7 (3.5-5.0) g/dL Globulin 3.7 (1.7-4.1) g/dL Albumin/Globulin Ratio 1.3 (1.0-2.8) Lipase 36 (23-300) U/L Point of care testing: Point of Care Testing Test Results Negative Urine Dip Bedside Urine Glucose Negative Bedside Urine Bilirubin - Negative Bedside Urine Ketone - Negative Urine Specific [place] 1.010 Bedside Urine Occult Blood - Negative Bedside Urine pH 7.0 Bedside Urine Protein - Negative Bedside Urine Urobilinogen - Negative Bedside Urine Nitrite - Negative Bedside Urine Leukocytes - Negative Esterase Imaging Data US - abdomen: Radiologist's impression: [address] [address] Ultrasound Report Signed Patient: Genaro Piper MMR#: [id number] : 1975Acct:[id number] Age/Sex: 43 / FDate of Service: 08/08/18 Loc: ED Accession Number: [id number] Procedure: US abdomen limited Ordering Provider: Da Barcenas D.O. PROCEDURE: US ABDOMEN LIMITED INDICATIONS: RIGHT UPPER QUADRANT PAIN; KNOWN GALLSTONES TECHNIQUE: Real-time focused scanning was performed of the abdomen, with image documentation. COMPARISON: [facility], , US ABDOMEN COMPLETE, 07/24/2018, 19:41. FINDINGS: Gallstones are again seen at the gallbladder fundus, the gallbladder wall is not thickened at 2.1 mm. There is tenderness during sonographic palpation over the gallbladder. The common bile duct is normal in caliber at 5.5 mm. The pancreas could not be visualized due to bowel gas. IMPRESSION: Gallstones within the gallbladder lumen but no gallbladder wall thickening or adjacent pericholecystic free fluid or biliary distention. Followup elective nuclear medicine hepatobiliary scan may be warranted. Dictated by: Dave Ferrell M.D. on 08/08/2018 at 19:11 Approved by: Dave Ferrell M.D. on 08/08/2018 at 19:13 MDM Narrative Medical decision making narrative: Multiple etiologies for patient's symptoms considered including: [Cholecystitis, cholelithiasis, poorly functioning gallbladder versus other] Patient's symptoms improved or duration of stay with above-stated therapies. Findings and discharge diagnosis discussed with patient/family followed by verbalization of understanding Return precautions discussed with patient/family whom verbalize understanding. Discharge Plan Departure Patient Disposition: Home Clinical Impression: Colic, biliary Discharge Date/Time: 08/08/18 19:48 Interventions: ED Discharge Assessment Last Done: 08/08/18 19:47 Instructions: DI for Biliary Colic Activity Restrictions/Additional Instructions: 1. Drink plenty of fluids with frequent small sips. 2. For the next 24 hours a clear liquid diet is advised. After that please employ a brat diet which would include bananas, rice, apples, toast. 3. Please take medications as directed. 4. Please follow-up with your doctor in the next 1-2 days. Call the office for an appointment. 5. Please return to the emergency Department for any worsening or persistent symptoms, such as increasing pain or fever. Prescriptions: New hydrocodone-acetaminophen 5-325 mg tablet 1 tab PO Q4-6H PRN (Reason: pain) Qty: 10 RF: 0 No Action alprazolam 0.5 mg tablet 0.5 mg PO BID RF: 0 hydroxyzine pamoate 25 mg capsule 25 mg PO Q6-8H PRNRF: 0 ranitidine HCl 150 mg capsule 150 mg PO BEDTIME RF: 0 trazodone 50 MG tablet 100 mg PO HS Qty: 0 RF: 0 venlafaxine 75 mg tablet 225 mg PO BID Qty: 180 RF: 3 methocarbamol 750 mg tablet 750 mg PO BEDTIME Qty: 30 RF: 5 ibuprofen 800 mg tablet 800 mg PO Q8H PRN (Reason: pain) Qty: 90 RF: 0 betamethasone dipropionate 0.05 % lotion 1 applictn TOP BID Qty: 60 RF: 5 beclomethasone diprop (AQ) [Beconase AQ] 42 mcg (0.042 %) spray,non-aerosol 1 spray NASAL BID Qty: 25 RF: 5 tramadol 50 mg tablet 50 mg PO BEDTIME 30 Days Qty: 30 RF: 0 Referrals: Chevy Marmolejo MD [Primary Care Provider] - Jessica Freeman MD [Physician] -
[2018-08-08 17:20] LABS: Add Manual Diff / Slide Review NO; Basophils Absolute Auto 0 /uL (0-100); Basophils Percent Auto 0.8 % (0-2); Eosinophils Absolute Auto 100 /uL (0-450); Eosinophils Percent Auto 2.4 % (2-4); Hematocrit 43.5 % (36-46); Hemoglobin 14.4 g/dL (12.0-16.0); Lymphocytes Absolute Auto 2400 /uL (1100-4500); Lymphocytes Percent Auto 39.4 % (25-40); Mean Corpuscular HGB Conc 33.1 % (30-36); Mean Corpuscular Hemoglobin 30.9 PG (26-34); Mean Corpuscular Volume 93.4 fL (80-100); Monocytes Absolute Auto 400 /uL (0-900); Monocytes Percent Auto 5.9 % (3-14); Neutrophils Absolute Auto 3100 /uL (1500-7000); Neutrophils Percent Auto 51.5 % (50-75); Platelet Count 354 X10^3/uL (150-400); Red Blood Cell Count 4.66 X10^6/uL (4.0-5.2); Red Cell Distribution Width 12.3 % (11.6-14.8)
[2018-08-08 17:30] LABS: Alanine Aminotransferase 51 IU/L (9-52); Albumin 4.7 g/dL (3.5-5.0); Albumin Globulin Ratio 1.3 (1.0-2.8); Alkaline Phosphatase 53 U/L (38-126); Aspartate Aminotransferase 33 IU/L (14-36); BUN Creatinine Ratio 12.5 (6-22); Bilirubin Total 0.3 mg/dL (0.2-1.3); Blood Urea Nitrogen 10 mg/dL (7-17); Calcium 8.9 mg/dL (8.4-10.2); Carbon Dioxide 30 mmol/L (22-32); Chloride 102 mmol/L (98-107); Estimated Glomerular Filt Rate > 60.0 mL/min (>60); Globulin 3.7 g/dL (1.7-4.1); Glucose 103 mg/dL (70-100); HEMOLYSIS 25 (0-50); Lipase 36 U/L (23-300); Potassium 4.4 mmol/L (3.4-5.1); Sodium 144 mmol/L (137-145); Total Protein 8.4 g/dL (6.3-8.2)
[2018-08-08] MEDS: MORPHINE 4 MG/ML INJ IV (17:49)
[2018-08-08] MEDS: SODIUM CHLORIDE 0.9% 1,000 ML 125 ML IV (17:50)
[2018-08-08 19:31] VITALS: BP 115/75; PULSE 80; RESP 20; O2SAT 98
[2018-08-08] MEDS: HYDROCODONE/ACET 5/325 PREPACK 1 BOTTLE MISC (19:41)
== END 2018-08-08 19:48 | disposition home or self-care (01) ==
PROVIDERS: Emergency Medicine; Emergency Provider Emergency Medicine; PCP Student in an Organized Health Care Education/Training Program
DX: K80.50 Calculus of bile duct without cholangitis or cholecystitis without obstruction (principal)
CPT/HCPCS: 76705; 80053; 81003; 81025; 83690; 85025; 96361; 96374; 99283; 99284; J2270

== ENCOUNTER 2018-08-10 18:29 | Emergency (ER) | payer OTHER, MEDICAID, SELFPAY ==
[2018-08-10 18:32] VITALS: BP 124/85; PULSE 109; RESP 16; TEMP 36.6; O2SAT 97; BMI 27.4
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
[2018-08-10 18:52] LABS: Add Manual Diff / Slide Review NO; Basophils Absolute Auto 0 /uL (0-100); Basophils Percent Auto 0.6 % (0-2); Eosinophils Absolute Auto 200 /uL (0-450); Eosinophils Percent Auto 2.5 % (2-4); Hematocrit 40.6 % (36-46); Hemoglobin 13.3 g/dL (12.0-16.0); Lymphocytes Absolute Auto 2800 /uL (1100-4500); Mean Corpuscular HGB Conc 32.8 % (30-36); Mean Corpuscular Hemoglobin 30.8 PG (26-34); Mean Corpuscular Volume 93.8 fL (80-100); Monocytes Absolute Auto 500 /uL (0-900); Monocytes Percent Auto 7.5 % (3-14); Neutrophils Absolute Auto 3600 /uL (1500-7000); Neutrophils Percent Auto 50.4 % (50-75); Platelet Count 324 X10^3/uL (150-400); Red Blood Cell Count 4.33 X10^6/uL (4.0-5.2); Red Cell Distribution Width 12.3 % (11.6-14.8); White Blood Cell Count 7.2 X10^3/uL (4.5-11.0)
--- NOTE | 2018-08-10 18:54 | ED.ABDPAIN ---
HPI - Abdominal Pain General Chief Complaint: Abdominal Pain Stated Complaint: ruq pain, ? ETOH Time Seen by Provider: 08/10/18 18:42 Source: patient, EMS and old records reviewed Limitations: no limitations History of Present Illness HPI narrative: patient is a 43-year-old female with known cholelithiasis presenting with right upper quadrant pain. She has been to the emergency department 2 other times for this. As she states that she has no appointment with general surgery at this time but she continues to have pain and problems. She feels nauseated at times. She also has some slurring of speech while giving history and difficulty staying awake. She denies any fever MD complaint: abdominal pain Pain Consistency: constant Location: RUQ Migration to: no migration Relieving factors: nothing Exacerbating factors: nothing Related Data Home Medications Medication Instructions Recorded Confirmed trazodone 100 mg PO HS #0 08/11/17 07/28/18 hydroxyzine pamoate 25 mg capsule 25 mg PO Q6-8H PRN 11/03/17 07/28/18 ranitidine 150 mg capsule 150 mg PO BEDTIME 11/03/17 07/28/18 alprazolam 0.5 mg tablet 0.5 mg PO BID 07/15/18 07/28/18 Previous Rx's Medication Instructions Recorded venlafaxine 75 mg tablet 225 mg PO BID #180 tab 04/07/18 methocarbamol 750 mg tablet 750 mg PO BEDTIME #30 tab 06/22/18 ibuprofen 800 mg tablet 800 mg PO Q8H PRN #90 tab 07/27/18 beclomethasone dipropionate 1 spray NASAL BID #25 gram 07/28/18 (aqueous) 42 mcg (0.042 %) nasal spray betamethasone dipropionate 0.05 % 1 applictn TOP BID #60 ml 07/28/18 lotion tramadol 50 mg tablet 50 mg PO BEDTIME 30 Days #30 tab 07/28/18 hydrocodone-acetaminophen 1 tab PO Q4-6H PRN #10 tab 08/08/18 Allergies Allergy/AdvReac Type Severity Reaction Status Date / Time meperidine [From DEMEROL] Allergy Mild Itching Verified 08/10/18 18:32 Review of Systems Review of Systems GENERAL: Denies chills, fatigue, malaise, fever, sweats, travel HEENT: Denies sinus pain, ear pain, sore throat, difficulty swallowing, neck pain RESPIRATORY: Denies dyspnea, cough, wheezing, hemoptysis, sputum. CARDIOVASCULAR: Denies chest pain, palpitations, orthopnea, edema GASTROINTESTINAL: see HPI : Denies dysuria, frequency, incontinence, hematuria, urinary retention, flank pain. MUSCULOSKELETAL: Denies weakness, joint pain, or bony pain SKIN: No rash, no erythema, no pruritus NEUROLOGIC: Denies weakness, dizziness, headache, numbness, change in speech, confusion PSYCHIATRIC: No concerning psychosocial issues. 12 point review of systems is negative except for those stated above and HPI [facility] Medical History Alcohol abuse (Acute) Chronic right shoulder pain (Chronic) Depression (Chronic) Fibromyalgia (Chronic) Tendinitis (Chronic) Surgical History History of ankle surgery (Resolved) Social History Smoking Status: Never smoker alcohol intake: current Social History Smoking Status: Never smoker alcohol intake: current Exam Initial Vital Signs Initial Vital Signs: Vital Signs Temperature 97.8 F 08/10/18 18:32 Pulse Rate 109 H 08/10/18 18:32 Respiratory Rate 16 08/10/18 18:32 Blood Pressure 124/85 08/10/18 18:32 Pulse Oximetry 97 08/10/18 18:32 Const General: cooperative, No well groomed, No acute distress and intoxicated appearing Orientation: alert, awake and oriented x3 HENMT Head: normal to inspection Eyes General: appearance normal, both eyes and all related structures Neck Neck: normal visual inspection and full ROM Chest Chest: normal inspection of the chest Resp Effort & Inspection: normal respiratory effort, able to speak in complete sentences, no respiratory distress and no use of accessory muscles Auscultation: clear to auscultation bilaterally, no rales, no rhonchi and no wheezes Cardio Rate: regular rate Rhythm: regular rhythm Heart Sounds: S1 normal and S2 normal GI Palpation: soft and tender (RUQ) Skin General: no rashes or lesions noted, No jaundice and No petechiae Neuro General: alert, awake and oriented x3 Cranial Nerves: CN's II-XI intact bilaterally Course Orders Ordered: ED Orders 08/10/18 18:45 Complete Blood Count AUTO DIFF Stat Comprehensive Metabolic Panel Stat Ethanol (ETOH) Stat Lipase Stat Partial Thromboplastin Time Stat Prothrombin Time INR Stat 08/10/18 20:13 Urine Drug Screen, Rapid Stat Discontinued Medications Ketorolac Tromethamine (Toradol) 15 mg IV NOW ONE Stop: 08/10/18 20:41 Last Admin: 08/10/18 20:40 Dose: 15 mg Vital Signs - 8 hr 08/10/18 18:32 08/10/18 20:00 Temperature 97.8 F Pulse Rate 109 H 102 H Respiratory Rate 16 14 Blood Pressure 124/85 Blood Pressure [Left Arm] 129/78 Pulse Oximetry 97 97 MDM - Abdominal Pain Lab Data Attestation: I reviewed the patient's lab results. Result diagrams: 08/10/18 18:45 08/10/18 18:45 Lab Results 08/10/18 08/10/18 08/10/18 Range/Units 18:45 18:45 18:45 WBC 7.2 (4.5-11.0) X10^3/uL RBC 4.33 (4.0-5.2) X10^6/uL Hgb 13.3 (12.0-16.0) g/dL Hct 40.6 (36-46) % MCV 93.8 (80-100) fL MCH 30.8 (26-34) PG MCHC 32.8 (30-36) % RDW 12.3 (11.6-14.8) % Plt Count 324 (150-400) X10^3/uL Neut % (Auto) 50.4 (50-75) % Lymph % (Auto) 39.0 (25-40) % [place] % (Auto) 7.5 (3-14) % Eos % (Auto) 2.5 (2-4) % Baso % (Auto) 0.6 (0-2) % Neut # (Auto) 3600 (4864-2346) /uL Lymph # (Auto) 2800 (6914-1280) /uL [place] # (Auto) 500 (0-900) /uL Eos # (Auto) 200 (0-450) /uL Baso # (Auto) 0 (0-100) /uL PT 10.4 (10.1-12.7) SECONDS INR 0.9 (0.9-1.3) APTT 29 (26.4-36.2) SECONDS Sodium 143 (137-145) mmol/L Potassium 4.5 (3.4-5.1) mmol/L Chloride 107 (98-107) mmol/L Carbon Dioxide 27 (22-32) mmol/L BUN 13 (7-17) mg/dL Creatinine 0.70 (0.52-1.04) mg/dL Estimated GFR > 60.0 (>60) mL/min BUN/Creatinine Ratio 18.6 (6-22) Glucose 93 (70-100) mg/dL Calcium 8.6 (8.4-10.2) mg/dL Total Bilirubin 0.1 L (0.2-1.3) mg/dL AST 30 (14-36) IU/L ALT 28 (9-52) IU/L Alkaline Phosphatase 49 (38-126) U/L Total Protein 7.2 (6.3-8.2) g/dL Albumin 4.2 (3.5-5.0) g/dL Globulin 3.0 (1.7-4.1) g/dL Albumin/Globulin Ratio 1.4 (1.0-2.8) Lipase 46 (23-300) U/L Urine Opiates Screen (Negative) Ur Oxycodone Screen (Negative) Urine Methadone Screen (Negative) Ur Barbiturates Screen (Negative) U Tricyclic Antidepress (Negative) Ur Phencyclidine Scrn (Negative) Ur Amphetamines Screen (Negative) U Methamphetamines Scrn (Negative) Ur MDMA Scrn (Ecstasy) (Negative) U Benzodiazepines Scrn (Negative) Urine Cocaine Screen (Negative) U Marijuana (THC) Screen (Negative) Ethyl Alcohol 322 mg/dL 08/10/18 Range/Units 20:13 WBC (4.5-11.0) X10^3/uL RBC (4.0-5.2) X10^6/uL Hgb (12.0-16.0) g/dL Hct (36-46) % MCV (80-100) fL MCH (26-34) PG MCHC (30-36) % RDW (11.6-14.8) % Plt Count (150-400) X10^3/uL Neut % (Auto) (50-75) % Lymph % (Auto) (25-40) % [place] % (Auto) (3-14) % Eos % (Auto) (2-4) % Baso % (Auto) (0-2) % Neut # (Auto) (3235-4316) /uL Lymph # (Auto) (6289-0480) /uL [place] # (Auto) (0-900) /uL Eos # (Auto) (0-450) /uL Baso # (Auto) (0-100) /uL PT (10.1-12.7) SECONDS INR (0.9-1.3) APTT (26.4-36.2) SECONDS Sodium (137-145) mmol/L Potassium (3.4-5.1) mmol/L Chloride (98-107) mmol/L Carbon Dioxide (22-32) mmol/L BUN (7-17) mg/dL Creatinine (0.52-1.04) mg/dL Estimated GFR (>60) mL/min BUN/Creatinine Ratio (6-22) Glucose (70-100) mg/dL Calcium (8.4-10.2) mg/dL Total Bilirubin (0.2-1.3) mg/dL AST (14-36) IU/L ALT (9-52) IU/L Alkaline Phosphatase (38-126) U/L Total Protein (6.3-8.2) g/dL Albumin (3.5-5.0) g/dL Globulin (1.7-4.1) g/dL Albumin/Globulin Ratio (1.0-2.8) Lipase (23-300) U/L Urine Opiates Screen Positive H (Negative) Ur Oxycodone Screen Negative (Negative) Urine Methadone Screen Negative (Negative) Ur Barbiturates Screen Negative (Negative) U Tricyclic Antidepress Negative (Negative) Ur Phencyclidine Scrn Negative (Negative) Ur Amphetamines Screen Negative (Negative) U Methamphetamines Scrn Negative (Negative) Ur MDMA Scrn (Ecstasy) Negative (Negative) U Benzodiazepines Scrn Negative (Negative) Urine Cocaine Screen Negative (Negative) U Marijuana (THC) Screen Negative (Negative) Ethyl Alcohol mg/dL Point of care testing: Point of Care Testing Test Results Negative Urine Dip Bedside Urine Glucose Negative Bedside Urine Bilirubin - Negative Bedside Urine Ketone - Negative Urine Specific [place] 1.015 Bedside Urine Occult Blood - Negative Bedside Urine pH 6.0 Bedside Urine Protein - Negative Bedside Urine Urobilinogen - Negative Bedside Urine Nitrite - Negative Bedside Urine Leukocytes - Negative Esterase MDM Narrative Medical decision making narrative: Dr. Arenas surgery has seen and evaluated patient in the ED. Agrees with no emergent cholecystectomy. He will see patient tomorrow in the office at 4:00 p.m.. I have explained patient whether is no need for emergent cholecystectomy surgery is also explained this to her as well. I have discussed with her that she needs to stop drinking. His patient's mother is coming to pick her up. Discharge Plan Departure Patient Disposition: Home Clinical Impression: Cholelithiasis Discharge Date/Time: 08/10/18 20:50 Interventions: ED Discharge Assessment Last Done: 08/10/18 20:50 Instructions: DI for Gallstones Activity Restrictions/Additional Instructions: - GIVEN APPOINTMENT WITH DR. ARENAS, SURGERY TOMORROW AT 4:00 P.M. - IT IS NOT EMERGENT THAT YOUR GALLBLADDER BE REMOVED THIS EVENING stop drinking alcohol return to ER if you should have any new or concerning symptoms Prescriptions: No Action alprazolam 0.5 mg tablet 0.5 mg PO BID RF: 0 hydroxyzine pamoate 25 mg capsule 25 mg PO Q6-8H PRNRF: 0 ranitidine HCl 150 mg capsule 150 mg PO BEDTIME RF: 0 trazodone 50 MG tablet 100 mg PO HS Qty: 0 RF: 0 venlafaxine 75 mg tablet 225 mg PO BID Qty: 180 RF: 3 methocarbamol 750 mg tablet 750 mg PO BEDTIME Qty: 30 RF: 5 ibuprofen 800 mg tablet 800 mg PO Q8H PRN (Reason: pain) Qty: 90 RF: 0 betamethasone dipropionate 0.05 % lotion 1 applictn TOP BID Qty: 60 RF: 5 beclomethasone diprop (AQ) [Beconase AQ] 42 mcg (0.042 %) spray,non-aerosol 1 spray NASAL BID Qty: 25 RF: 5 tramadol 50 mg tablet 50 mg PO BEDTIME 30 Days Qty: 30 RF: 0 hydrocodone-acetaminophen 5-325 mg tablet 1 tab PO Q4-6H PRN (Reason: pain) Qty: 10 RF: 0 Referrals: Chevy Marmolejo MD [Primary Care Provider] -
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
--- NOTE | 2018-08-10 18:58 | ED_ITS ---
HPI - Abdominal Pain General Chief Complaint: Abdominal Pain Stated Complaint: ruq pain, ? ETOH Time Seen by Provider: 08/10/18 18:42 Source: patient, EMS and old records reviewed Limitations: no limitations History of Present Illness HPI narrative: patient is a 43-year-old female with known cholelithiasis presenting with right upper quadrant pain. She has been to the emergency department 2 other times for this. As she states that she has no appointment with general surgery at this time but she continues to have pain and problems. She feels nauseated at times. She also has some slurring of speech while giving history and difficulty staying awake. She denies any fever MD complaint: abdominal pain Pain Consistency: constant Location: RUQ Migration to: no migration Relieving factors: nothing Exacerbating factors: nothing Related Data Home Medications Medication Instructions Recorded Confirmed trazodone 100 mg PO HS #0 08/11/17 07/28/18 hydroxyzine pamoate 25 mg capsule 25 mg PO Q6-8H PRN 11/03/17 07/28/18 ranitidine 150 mg capsule 150 mg PO BEDTIME 11/03/17 07/28/18 alprazolam 0.5 mg tablet 0.5 mg PO BID 07/15/18 07/28/18 Previous Rx's Medication Instructions Recorded venlafaxine 75 mg tablet 225 mg PO BID #180 tab 04/07/18 methocarbamol 750 mg tablet 750 mg PO BEDTIME #30 tab 06/22/18 ibuprofen 800 mg tablet 800 mg PO Q8H PRN #90 tab 07/27/18 beclomethasone dipropionate 1 spray NASAL BID #25 gram 07/28/18 (aqueous) 42 mcg (0.042 %) nasal spray betamethasone dipropionate 0.05 % 1 applictn TOP BID #60 ml 07/28/18 lotion tramadol 50 mg tablet 50 mg PO BEDTIME 30 Days #30 tab 07/28/18 hydrocodone-acetaminophen 1 tab PO Q4-6H PRN #10 tab 08/08/18 Allergies Allergy/AdvReac Type Severity Reaction Status Date / Time meperidine [From DEMEROL] Allergy Mild Itching Verified 08/10/18 18:32 Review of Systems Review of Systems GENERAL: Denies chills, fatigue, malaise, fever, sweats, travel HEENT: Denies sinus pain, ear pain, sore throat, difficulty swallowing, neck pain RESPIRATORY: Denies dyspnea, cough, wheezing, hemoptysis, sputum. CARDIOVASCULAR: Denies chest pain, palpitations, orthopnea, edema GASTROINTESTINAL: see HPI : Denies dysuria, frequency, incontinence, hematuria, urinary retention, flank pain. MUSCULOSKELETAL: Denies weakness, joint pain, or bony pain SKIN: No rash, no erythema, no pruritus NEUROLOGIC: Denies weakness, dizziness, headache, numbness, change in speech, confusion PSYCHIATRIC: No concerning psychosocial issues. 12 point review of systems is negative except for those stated above and HPI [facility] Medical History Alcohol abuse (Acute) Chronic right shoulder pain (Chronic) Depression (Chronic) Fibromyalgia (Chronic) Tendinitis (Chronic) Surgical History History of ankle surgery (Resolved) Social History Smoking Status: Never smoker alcohol intake: current Social History Smoking Status: Never smoker alcohol intake: current Exam Initial Vital Signs Initial Vital Signs: Vital Signs Temperature 97.8 F 08/10/18 18:32 Pulse Rate 109 H 08/10/18 18:32 Respiratory Rate 16 08/10/18 18:32 Blood Pressure 124/85 08/10/18 18:32 Pulse Oximetry 97 08/10/18 18:32 Const General: cooperative, No well groomed, No acute distress and intoxicated appearing Orientation: alert, awake and oriented x3 HENMT Head: normal to inspection Eyes General: appearance normal, both eyes and all related structures Neck Neck: normal visual inspection and full ROM Chest Chest: normal inspection of the chest Resp Effort & Inspection: normal respiratory effort, able to speak in complete sentences, no respiratory distress and no use of accessory muscles Auscultation: clear to auscultation bilaterally, no rales, no rhonchi and no wheezes Cardio Rate: regular rate Rhythm: regular rhythm Heart Sounds: S1 normal and S2 normal GI Palpation: soft and tender (RUQ) Skin General: no rashes or lesions noted, No jaundice and No petechiae Neuro General: alert, awake and oriented x3 Cranial Nerves: CN's II-XI intact bilaterally Course Orders Ordered: ED Orders 08/10/18 18:45 Complete Blood Count AUTO DIFF Stat Comprehensive Metabolic Panel Stat Ethanol (ETOH) Stat Lipase Stat Partial Thromboplastin Time Stat Prothrombin Time INR Stat 08/10/18 20:13 Urine Drug Screen, Rapid Stat Discontinued Medications Ketorolac Tromethamine (Toradol) 15 mg IV NOW ONE Stop: 08/10/18 20:41 Last Admin: 08/10/18 20:40 Dose: 15 mg Vital Signs - 8 hr 08/10/18 18:32 08/10/18 20:00 Temperature 97.8 F Pulse Rate 109 H 102 H Respiratory Rate 16 14 Blood Pressure 124/85 Blood Pressure [Left Arm] 129/78 Pulse Oximetry 97 97 MDM - Abdominal Pain Lab Data Attestation: I reviewed the patient's lab results. Result diagrams: 08/10/18 18:45 08/10/18 18:45 Lab Results 08/10/18 08/10/18 08/10/18 Range/Units 18:45 18:45 18:45 WBC 7.2 (4.5-11.0) X10^3/uL RBC 4.33 (4.0-5.2) X10^6/uL Hgb 13.3 (12.0-16.0) g/dL Hct 40.6 (36-46) % MCV 93.8 (80-100) fL MCH 30.8 (26-34) PG MCHC 32.8 (30-36) % RDW 12.3 (11.6-14.8) % Plt Count 324 (150-400) X10^3/uL Neut % (Auto) 50.4 (50-75) % Lymph % (Auto) 39.0 (25-40) % [facility] % (Auto) 7.5 (3-14) % Eos % (Auto) 2.5 (2-4) % Baso % (Auto) 0.6 (0-2) % Neut # (Auto) 3600 (0066-5738) /uL Lymph # (Auto) 2800 (3757-6124) /uL [facility] # (Auto) 500 (0-900) /uL Eos # (Auto) 200 (0-450) /uL Baso # (Auto) 0 (0-100) /uL PT 10.4 (10.1-12.7) SECONDS INR 0.9 (0.9-1.3) APTT 29 (26.4-36.2) SECONDS Sodium 143 (137-145) mmol/L Potassium 4.5 (3.4-5.1) mmol/L Chloride 107 (98-107) mmol/L Carbon Dioxide 27 (22-32) mmol/L BUN 13 (7-17) mg/dL Creatinine 0.70 (0.52-1.04) mg/dL Estimated GFR > 60.0 (>60) mL/min BUN/Creatinine Ratio 18.6 (6-22) Glucose 93 (70-100) mg/dL Calcium 8.6 (8.4-10.2) mg/dL Total Bilirubin 0.1 L (0.2-1.3) mg/dL AST 30 (14-36) IU/L ALT 28 (9-52) IU/L Alkaline Phosphatase 49 (38-126) U/L Total Protein 7.2 (6.3-8.2) g/dL Albumin 4.2 (3.5-5.0) g/dL Globulin 3.0 (1.7-4.1) g/dL Albumin/Globulin Ratio 1.4 (1.0-2.8) Lipase 46 (23-300) U/L Urine Opiates Screen (Negative) Ur Oxycodone Screen (Negative) Urine Methadone Screen (Negative) Ur Barbiturates Screen (Negative) U Tricyclic Antidepress (Negative) Ur Phencyclidine Scrn (Negative) Ur Amphetamines Screen (Negative) U Methamphetamines Scrn (Negative) Ur MDMA Scrn (Ecstasy) (Negative) U Benzodiazepines Scrn (Negative) Urine Cocaine Screen (Negative) U Marijuana (THC) Screen (Negative) Ethyl Alcohol 322 mg/dL 08/10/18 Range/Units 20:13 WBC (4.5-11.0) X10^3/uL RBC (4.0-5.2) X10^6/uL Hgb (12.0-16.0) g/dL Hct (36-46) % MCV (80-100) fL MCH (26-34) PG MCHC (30-36) % RDW (11.6-14.8) % Plt Count (150-400) X10^3/uL Neut % (Auto) (50-75) % Lymph % (Auto) (25-40) % [facility] % (Auto) (3-14) % Eos % (Auto) (2-4) % Baso % (Auto) (0-2) % Neut # (Auto) (0381-9666) /uL Lymph # (Auto) (1924-0912) /uL [facility] # (Auto) (0-900) /uL Eos # (Auto) (0-450) /uL Baso # (Auto) (0-100) /uL PT (10.1-12.7) SECONDS INR (0.9-1.3) APTT (26.4-36.2) SECONDS Sodium (137-145) mmol/L Potassium (3.4-5.1) mmol/L Chloride (98-107) mmol/L Carbon Dioxide (22-32) mmol/L BUN (7-17) mg/dL Creatinine (0.52-1.04) mg/dL Estimated GFR (>60) mL/min BUN/Creatinine Ratio (6-22) Glucose (70-100) mg/dL Calcium (8.4-10.2) mg/dL Total Bilirubin (0.2-1.3) mg/dL AST (14-36) IU/L ALT (9-52) IU/L Alkaline Phosphatase (38-126) U/L Total Protein (6.3-8.2) g/dL Albumin (3.5-5.0) g/dL Globulin (1.7-4.1) g/dL Albumin/Globulin Ratio (1.0-2.8) Lipase (23-300) U/L Urine Opiates Screen Positive H (Negative) Ur Oxycodone Screen Negative (Negative) Urine Methadone Screen Negative (Negative) Ur Barbiturates Screen Negative (Negative) U Tricyclic Antidepress Negative (Negative) Ur Phencyclidine Scrn Negative (Negative) Ur Amphetamines Screen Negative (Negative) U Methamphetamines Scrn Negative (Negative) Ur MDMA Scrn (Ecstasy) Negative (Negative) U Benzodiazepines Scrn Negative (Negative) Urine Cocaine Screen Negative (Negative) U Marijuana (THC) Screen Negative (Negative) Ethyl Alcohol mg/dL Point of care testing: Point of Care Testing Test Results Negative Urine Dip Bedside Urine Glucose Negative Bedside Urine Bilirubin - Negative Bedside Urine Ketone - Negative Urine Specific [place] 1.015 Bedside Urine Occult Blood - Negative Bedside Urine pH 6.0 Bedside Urine Protein - Negative Bedside Urine Urobilinogen - Negative Bedside Urine Nitrite - Negative Bedside Urine Leukocytes - Negative Esterase MDM Narrative Medical decision making narrative: Dr. Arenas surgery has seen and evaluated patient in the ED. Agrees with no emergent cholecystectomy. He will see patient tomorrow in the office at 4:00 p.m.. I have explained patient whether is no need for emergent cholecystectomy surgery is also explained this to her as well. I have discussed with her that she needs to stop drinking. His patient's mother is coming to pick her up. Discharge Plan Departure Patient Disposition: Home Clinical Impression: Cholelithiasis Discharge Date/Time: 08/10/18 20:50 Interventions: ED Discharge Assessment Last Done: 08/10/18 20:50 Instructions: DI for Gallstones Activity Restrictions/Additional Instructions: - GIVEN APPOINTMENT WITH DR. ARENAS, SURGERY TOMORROW AT 4:00 P.M. - IT IS NOT EMERGENT THAT YOUR GALLBLADDER BE REMOVED THIS EVENING stop drinking alcohol return to ER if you should have any new or concerning symptoms Prescriptions: No Action alprazolam 0.5 mg tablet 0.5 mg PO BID RF: 0 hydroxyzine pamoate 25 mg capsule 25 mg PO Q6-8H PRNRF: 0 ranitidine HCl 150 mg capsule 150 mg PO BEDTIME RF: 0 trazodone 50 MG tablet 100 mg PO HS Qty: 0 RF: 0 venlafaxine 75 mg tablet 225 mg PO BID Qty: 180 RF: 3 methocarbamol 750 mg tablet 750 mg PO BEDTIME Qty: 30 RF: 5 ibuprofen 800 mg tablet 800 mg PO Q8H PRN (Reason: pain) Qty: 90 RF: 0 betamethasone dipropionate 0.05 % lotion 1 applictn TOP BID Qty: 60 RF: 5 beclomethasone diprop (AQ) [Beconase AQ] 42 mcg (0.042 %) spray,non-aerosol 1 spray NASAL BID Qty: 25 RF: 5 tramadol 50 mg tablet 50 mg PO BEDTIME 30 Days Qty: 30 RF: 0 hydrocodone-acetaminophen 5-325 mg tablet 1 tab PO Q4-6H PRN (Reason: pain) Qty: 10 RF: 0 Referrals: Chevy Marmolejo MD [Primary Care Provider] -
[2018-08-10 19:00] LABS: INR 0.9 (0.9-1.3); Prothrombin Time 10.4 SECONDS (10.1-12.7)
[2018-08-10 19:02] LABS: PTT Partial Thromboplastin Tim 29 SECONDS (26.4-36.2)
[2018-08-10 19:04] LABS: Alanine Aminotransferase 28 IU/L (9-52); Albumin 4.2 g/dL (3.5-5.0); Albumin Globulin Ratio 1.4 (1.0-2.8); Alkaline Phosphatase 49 U/L (38-126); Aspartate Aminotransferase 30 IU/L (14-36); BUN Creatinine Ratio 18.6 (6-22); Bilirubin Total 0.1 mg/dL (0.2-1.3); Blood Urea Nitrogen 13 mg/dL (7-17); Calcium 8.6 mg/dL (8.4-10.2); Carbon Dioxide 27 mmol/L (22-32); Chloride 107 mmol/L (98-107); Estimated Glomerular Filt Rate > 60.0 mL/min (>60); Glucose 93 mg/dL (70-100); Lipase 46 U/L (23-300); Potassium 4.5 mmol/L (3.4-5.1); Sodium 143 mmol/L (137-145); Total Protein 7.2 g/dL (6.3-8.2)
[2018-08-10 19:11] LABS: Ethanol (ETOH) 322 mg/dL; HEMOLYSIS 16 (0-50)
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
[2018-08-10 20:00] VITALS: BP 129/78; PULSE 102; RESP 14; O2SAT 97
--- NOTE | 2018-08-10 20:16 | PC.NURSE ---
Pt asking multiple people for food and fluids. Very upset that I told her multiple people had told her that she was npo at this time. Pacing in room.
[2018-08-10] MEDS: KETOROLAC 60 MG/2 ML VIAL 15 MG IV (20:40)
[2018-08-10 20:42] LABS: Urine Amphetamines Negative (Negative); Urine Barbiturates Negative (Negative); Urine Benzodiazepines Negative (Negative); Urine Cocaine Negative (Negative); Urine MDMA Negative (Negative); Urine Methadone Negative (Negative); Urine Methamphetamines Negative (Negative); Urine Morphine/Opi cutoff 2000 Positive (Negative); Urine Oxycodone Negative (Negative); Urine Phencyclidine Negative (Negative); Urine Tetrahydrocannabinol Negative (Negative); Urine Tricyclic Antidepressant Negative (Negative)
--- NOTE | 2018-08-10 20:58 | P.CONS_ITS ---
History of Present Illness Date Patient Seen: 08/10/18 Time Patient Seen: 20:51 Chief complaint: ruq pain, ? ETOH Reason for consult: Right upper quadrant abdominal pain with known cholelithiasis Requesting provider: Lianet Mcmahon Narrative: 43-year-old female with several month history of intermittent right upper quadrant and epigastric abdominal pain for which she has been in the emergency department on at least 1 other occasion as well as had 1 or 2 visits with her primary care physician. Evaluation has shown cholelithiasis but no other significant findings. Patient was last seen in the emergency department several nights ago with similar symptoms then discharged home with conservative measures including dietary modifications. She has not particularly follow the dietary modifications, but she has taken the hydrocodone as prescribed. She states that the pain still occurs intermittently but mostly at night. In fact, the patient called me several hours prior to her emergency room presentation through my answering service although she is not yet establish care in our practice and reported to me her abdominal pain throughout the course of the day today. Of note, she was somewhat erratic in her speech and could not offer a clear history. In addition her speech was slurred over the telephone consistent with a potential acute intoxication. Regardless I advised that she present to the emergency department after eventually obtaining the above history from her. In the ER she is found to be afebrile but is mainly demanding emergency surgery for her gallstones. Again, she appears to be somewhat acutely intoxicated and offers a relatively poor history but from what I can ascertain she has had no fever, chills, acholic stools, dark brown urine, or jaundice. Pain is described as intermittently sharp in the right upper quadrant occasionally radiating to the back. No chest pain or shortness of breath. No pain elsewhere in the abdomen. No dysuria or hematuria. [facility] Medical History Alcohol abuse (Acute) Chronic right shoulder pain (Chronic) Depression (Chronic) Fibromyalgia (Chronic) Tendinitis (Chronic) Surgical History History of ankle surgery (Resolved) Social History Smoking Status: Never smoker alcohol intake: current Social History Smoking Status: Never smoker alcohol intake: current Meds Home Medications Medication Instructions Recorded Confirmed Type trazodone 100 mg PO HS #0 08/11/17 07/28/18 History hydroxyzine pamoate 25 mg capsule 25 mg PO Q6-8H PRN 11/03/17 07/28/18 History ranitidine 150 mg capsule 150 mg PO BEDTIME 11/03/17 07/28/18 History venlafaxine 75 mg tablet 225 mg PO BID #180 tab 04/07/18 07/28/18 Rx methocarbamol 750 mg tablet 750 mg PO BEDTIME #30 tab 06/22/18 07/28/18 Rx alprazolam 0.5 mg tablet 0.5 mg PO BID 07/15/18 07/28/18 History ibuprofen 800 mg tablet 800 mg PO Q8H PRN #90 tab 07/27/18 07/28/18 Rx beclomethasone dipropionate 1 spray NASAL BID #25 gram 07/28/18 Rx (aqueous) 42 mcg (0.042 %) nasal spray betamethasone dipropionate 0.05 % 1 applictn TOP BID #60 ml 07/28/18 Rx lotion tramadol 50 mg tablet 50 mg PO BEDTIME 30 Days #30 tab 07/28/18 Rx hydrocodone-acetaminophen 1 tab PO Q4-6H PRN #10 tab 08/08/18 Rx Allergies Allergy/AdvReac Type Severity Reaction Status Date / Time meperidine [From DEMEROL] Allergy Mild Itching Verified 08/10/18 18:32 Review of Systems Review of Systems All systems reviewed & are unremarkable except as noted in HPI and below Exam Vital Signs (past 8 hours): - 08/10/18 18:32 08/10/18 20:00 Temperature 97.8 F Pulse Rate 109 H 102 H Respiratory Rate 16 14 Blood Pressure 124/85 Blood Pressure [Left Arm] 129/78 Pulse Oximetry 97 97 Oxygen Delivery Method Room Air Narrative Exam Narrative: Patient lying in the gurney in comfortable position in no acute distress. She does not appear acutely ill. The entire visit is performed with the assistance of the nurse commercial real estate lender. She is afebrile although mildly tachycardic this evening. Normal blood pressure. Sclera are nonicteric No crackles or wheezes Abdomen is soft and nondistended. She is minimally tender in the right upper quadrant certainly has no Hairston sign is evening. No guarding or rebound. No masses. No hepatomegaly. No obvious ascites. Extremities show no clubbing or cyanosis Objective Labs Result Diagrams: 08/10/18 18:45 08/10/18 18:45 Labs: Laboratory Results - last 24 hr 08/10/18 08/10/18 08/10/18 18:45 18:45 18:45 WBC 7.2 RBC 4.33 Hgb 13.3 Hct 40.6 MCV 93.8 MCH 30.8 MCHC 32.8 RDW 12.3 Plt Count 324 Neut % (Auto) 50.4 Lymph % (Auto) 39.0 [place] % (Auto) 7.5 Eos % (Auto) 2.5 Baso % (Auto) 0.6 Neut # (Auto) 3600 Lymph # (Auto) 2800 [place] # (Auto) 500 Eos # (Auto) 200 Baso # (Auto) 0 PT 10.4 INR 0.9 APTT 29 Sodium 143 Potassium 4.5 Chloride 107 Carbon Dioxide 27 BUN 13 Creatinine 0.70 Estimated GFR > 60.0 BUN/Creatinine Ratio 18.6 Glucose 93 Calcium 8.6 Total Bilirubin 0.1 L AST 30 ALT 28 Alkaline Phosphatase 49 Total Protein 7.2 Albumin 4.2 Globulin 3.0 Albumin/Globulin Ratio 1.4 Lipase 46 Urine Opiates Screen Ur Oxycodone Screen Urine Methadone Screen Ur Barbiturates Screen U Tricyclic Antidepress Ur Phencyclidine Scrn Ur Amphetamines Screen U Methamphetamines Scrn Ur MDMA Scrn (Ecstasy) U Benzodiazepines Scrn Urine Cocaine Screen U Marijuana (THC) Screen Ethyl Alcohol 322 08/10/18 20:13 WBC RBC Hgb Hct MCV MCH MCHC RDW Plt Count Neut % (Auto) Lymph % (Auto) Harper % (Auto) Eos % (Auto) Baso % (Auto) Neut # (Auto) Lymph # (Auto) Harper # (Auto) Eos # (Auto) Baso # (Auto) PT INR APTT Sodium Potassium Chloride Carbon Dioxide BUN Creatinine Estimated GFR BUN/Creatinine Ratio Glucose Calcium Total Bilirubin AST ALT Alkaline Phosphatase Total Protein Albumin Globulin Albumin/Globulin Ratio Lipase Urine Opiates Screen Positive H Ur Oxycodone Screen Negative Urine Methadone Screen Negative Ur Barbiturates Screen Negative U Tricyclic Antidepress Negative Ur Phencyclidine Scrn Negative Ur Amphetamines Screen Negative U Methamphetamines Scrn Negative Ur MDMA Scrn (Ecstasy) Negative U Benzodiazepines Scrn Negative Urine Cocaine Screen Negative U Marijuana (THC) Screen Negative Ethyl Alcohol liver function tests are completely normal. Lipase is unremarkable. Of note, she does have a significantly elevated ethanol level. I have personally reviewed the ultrasounds done through the emergency department in the last 2 weeks or so. She does have multiple small mobile gallstones. No gallbladder wall thickening. No pericholecystic fluid. Common bile duct is normal in approximately 5 mm. Study is otherwise normal. Assessment & Plan Plan: Assessment/Plan Narrative: 43-year-old female with potential biliary colic secondary to gallstones although her history and physical examination are difficult at best given her recent use of hydrocodone an obvious acute ethanol intoxication this evening. She does have a documented history of alcohol abuse. At the moment there are no indications of acute cholecystitis, choledocholithiasis, or cholangitis. She therefore does not require any emergent intervention. I have explained this to her in detail, although I am uncertain exactly how much of this she fully comprehends in her acutely intoxicated state. In fact, she become somewhat belligerent when I discussed this with her and recommend that we see her in the office tomorrow afternoon to schedule elective surgery in the near future. I believe she would be a potential candidate for laparoscopic cholecystectomy although she could certainly have other sources of her epigastric pain such as alcoholic gastritis, gastric ulcers, and duodenitis. She does not have any evidence of acute pancreatitis nor does she appear to have chronic alcoholic pancreatitis. I did not really discussed the technical details of laparoscopic cholecystectomy or the potential risks of the procedure given her acutely intoxicated state. She had no family with her this evening as well. We will review this in more detail in the office setting. I do have some concerns that she will not be completely asymptomatic even after cholecystectomy given her other comorbid medical conditions and significant alcohol use. She reiterated on several occasions her desire for a 2nd surgical opinion which I am happy to accommodate if she wishes. Nevertheless I will plan to see her tomorrow proceed as above. My contact information was provided in her discharge papers. At the moment I answered all of her questions to the best of my ability, and she voiced understanding although again she was clearly frustrated at the recommendation for elective rather than emergent surgery this evening.
== END 2018-08-10 20:50 | disposition home or self-care (01) ==
PROVIDERS: Emergency Provider Emergency Medicine; PCP Student in an Organized Health Care Education/Training Program
DX: K80.20 Calculus of gallbladder without cholecystitis without obstruction (principal)
CPT/HCPCS: 36591; 80053; 80305; 80320; 81003; 81025; 83690; 85025; 85610; 85730; 96374; 99283; 99284; J1885

== ENCOUNTER 2018-08-11 17:21 | Emergency (ER) | payer OTHER, MEDICAID, SELFPAY ==
[2018-08-11 17:22] VITALS: BP 132/85; PULSE 124; RESP 20; TEMP 37; O2SAT 97; BMI 27.4
[2018-08-11 17:38] VITALS: BP 134/97; PULSE 127; O2SAT 94
[2018-08-11 18:07] VITALS: BP 127/55; PULSE 125; RESP 14; TEMP 37.1; O2SAT 96
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
[2018-08-11 18:13] LABS: Add Manual Diff / Slide Review NO; Basophils Absolute Auto 100 /uL (0-100); Basophils Percent Auto 0.8 % (0-2); Eosinophils Absolute Auto 100 /uL (0-450); Eosinophils Percent Auto 1.2 % (2-4); Hemoglobin 13.5 g/dL (12.0-16.0); Lymphocytes Absolute Auto 2700 /uL (1100-4500); Lymphocytes Percent Auto 39.7 % (25-40); Mean Corpuscular Hemoglobin 30.8 PG (26-34); Mean Corpuscular Volume 93.3 fL (80-100); Monocytes Absolute Auto 400 /uL (0-900); Monocytes Percent Auto 5.6 % (3-14); Neutrophils Absolute Auto 3600 /uL (1500-7000); Neutrophils Percent Auto 52.7 % (50-75); Platelet Count 345 X10^3/uL (150-400); Red Cell Distribution Width 12.3 % (11.6-14.8); White Blood Cell Count 6.8 X10^3/uL (4.5-11.0)
[2018-08-11 18:19] LABS: Ethanol (ETOH) 273 mg/dL
[2018-08-11 18:20] LABS: Alanine Aminotransferase 44 IU/L (9-52); Albumin 4.5 g/dL (3.5-5.0); Albumin Globulin Ratio 1.3 (1.0-2.8); Alkaline Phosphatase 56 U/L (38-126); Aspartate Aminotransferase 75 IU/L (14-36); BUN Creatinine Ratio 17.1 (6-22); Bilirubin Total 0.2 mg/dL (0.2-1.3); Blood Urea Nitrogen 12 mg/dL (7-17); Calcium 8.7 mg/dL (8.4-10.2); Carbon Dioxide 30 mmol/L (22-32); Chloride 102 mmol/L (98-107); Estimated Glomerular Filt Rate > 60.0 mL/min (>60); Globulin 3.4 g/dL (1.7-4.1); Glucose 97 mg/dL (70-100); HEMOLYSIS < 15 (0-50); Potassium 4.4 mmol/L (3.4-5.1); Sodium 141 mmol/L (137-145); Total Protein 7.9 g/dL (6.3-8.2)
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
[2018-08-11 18:44] VITALS: PULSE 110; RESP 18; O2SAT 98
[2018-08-11] MEDS: KETOROLAC 60 MG/2 ML VIAL 30 MG IM (18:47)
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
== END 2018-08-11 19:05 | disposition home or self-care (01) ==
PROVIDERS: Internal Medicine; Emergency Provider Emergency Medicine; PCP Student in an Organized Health Care Education/Training Program
DX: K80.20 Calculus of gallbladder without cholecystitis without obstruction (principal)
CPT/HCPCS: 80053; 80320; 81003; 85025; 96372; 99282; 99283; J1885

== ENCOUNTER 2018-08-27 01:05 | Emergency (ER) | payer OTHER, MEDICAID, SELFPAY ==
[2018-08-27 01:10] VITALS: BP 115/71; PULSE 103; RESP 18; TEMP 36.7; O2SAT 98; BMI 26.6
--- NOTE | 2018-08-27 01:18 | DI.US.S_ITS ---
PROCEDURE: US ABDOMEN COMPLETE INDICATIONS: RIGHT UPPER QUADRANT PAIN TECHNIQUE: Real-time scanning was performed of the abdominal and retroperitoneal organs, with image documentation. COMPARISON: [facility], , US ABDOMEN COMPLETE, 07/24/2018, 19:41. FINDINGS: Liver: Liver is normal in size and homogeneous in echotexture. 1.2 cm liver calcification noted possibly related to prior granulomatous disease. Gallbladder: 9 mm mobile stone noted in the gallbladder lumen. No gallbladder wall thickening. No pericholecystic fluid. No sonographic Ha[place]on sign. Biliary ducts: Intrahepatic bile ducts are non-dilated. Extrahepatic bile duct caliber measures 4.0 mm. Normal is 6-7 mm or less in diameter, or 10 mm or less post-cholecystectomy. Pancreas: Suboptimally visualized due to bowel gas. Spleen: Spleen is normal in size and homogeneous in echotexture. Kidneys: Kidneys are normal in size and echotexture. Right kidney measures 11.2 cm long; left kidney measures 11.6 cm long. No hydronephrosis or nephrolithiasis. No solid masses. Aorta: Visualized aorta is normal in caliber at less than 3 cm. Iliacs: Proximal common iliac arteries are normal in caliber at less than 2.5 cm. IVC: Intrahepatic inferior vena cava is patent. Miscellaneous: No free abdominal fluid. IMPRESSION: Cholelithiasis without sonographic evidence of cholecystitis. Dictated by: Danica Vargas MD, PhD on 08/27/2018 at 8:17 Approved by: Danica Vargas MD, PhD on 08/27/2018 at 8:20
--- NOTE | 2018-08-27 01:29 | ED_ITS ---
HPI - Abdominal Pain General Chief Complaint: Abdominal Pain Stated Complaint: gallstone pain Time Seen by Provider: 08/27/18 01:07 Source: patient and old records reviewed Mode of arrival: EMS (per EMS patient walked to ambulance and the dropped her at the door. ) History of Present Illness HPI narrative: This is a 43-year-old female who comes to the emergency department with complaint of abdominal pain patient states her to right upper quadrant pain radiating towards the back. Patient has been diagnosed with gallstones, she has seen General surgery about this about potentially having surgery and cholecystectomy. Patient has had several visits here for similar as well as related issues. Patient states that she has not had any fevers. She has been nauseated but not vomiting. She has been having bowel movements. She states that pain is worse today than it has been recently. She has been able to control it for the most part as an outpatient. She states she recently started a job at [employer] and has been doing a lot of strenuous activity which is also made her back achy. She is not having any dysuria urgency or frequency. She states they have not actually scheduled surgery at this point. Related Data Home Medications Medication Instructions Recorded Confirmed trazodone 100 mg PO HS #0 08/11/17 08/11/18 hydroxyzine pamoate 25 mg capsule 25 mg PO Q6-8H PRN 11/03/17 08/11/18 ranitidine 150 mg capsule 150 mg PO BEDTIME 11/03/17 08/11/18 alprazolam 0.5 mg tablet 0.5 mg PO BID 07/15/18 08/11/18 Previous Rx's Medication Instructions Recorded venlafaxine 75 mg tablet 225 mg PO BID #180 tab 04/07/18 methocarbamol 750 mg tablet 750 mg PO BEDTIME #30 tab 06/22/18 beclomethasone dipropionate 1 spray NASAL BID #25 gram 07/28/18 (aqueous) 42 mcg (0.042 %) nasal spray betamethasone dipropionate 0.05 % 1 applictn TOP BID #60 ml 07/28/18 lotion hydrocodone-acetaminophen 1 tab PO Q4-6H PRN #10 tab 08/08/18 acetaminophen 500 mg tablet 1,000 mg PO Q6H PRN #240 tab 08/18/18 ibuprofen 800 mg tablet 800 mg PO Q8H PRN #90 tab 08/24/18 meloxicam [Mobic] 7.5 mg PO BID PRN #10 tab 08/27/18 Allergies Allergy/AdvReac Type Severity Reaction Status Date / Time meperidine [From DEMEROL] Allergy Mild Itching Verified 08/10/18 18:32 Review of Systems Review of Systems ROS Unobtainable: All systems reviewed & are unremarkable except as noted in HPI and below Constitutional Denies chills, Denies fever(s) and Denies increased appetite Gastrointestinal Gastrointestinal: Reports abdominal pain, Denies melena, Denies hematochezia, Denies change in bowel habits, Denies diarrhea, Reports nausea and Denies vomiting Genitourinary Denies hematuria, Denies urinary frequency, Denies dysuria, Denies flank pain, Denies urinary incontinence and Denies urinary urgency Musculoskeletal Reports back pain (Low back stiffness.) Integumentary/Breasts Denies rash PFSH Medical History Alcohol abuse (Acute) Cholelithiasis (Acute) Chronic right shoulder pain (Chronic) Depression (Chronic) Fibromyalgia (Chronic) Tendinitis (Chronic) Surgical History History of ankle surgery (Resolved) Social History Smoking Status: Never smoker alcohol intake: current Social History Smoking Status: Never smoker alcohol intake: current Exam Narrative Exam Narrative: GENERAL: Alert and oriented x three, well-nourished female in mild distress. HEENT: Head normocephalic, atraumatic, EOMI, pupils reactive, face symmetric, moist mucous membranes NECK: Supple, full range of motion CARDIOVASCULAR: Regular rate and rhythm without murmurs, rubs or gallops. RESPIRATORY: Breath sounds equal bilaterally, no wheezes rales or rhonchi. ABDOMEN: Soft, minimal right upper quadrant tenderness. Normoactive bowel sounds all 4 quadrants. No guarding or rebound, rigidity, no mass : No CVA tenderness EXTREMITIES: Normal range of motion, no clubbing or edema. Neurovascularly intact NEUROLOGICAL: Cranial nerves II through XII grossly intact. Moving all extremities SKIN: Warm, dry, no petechiae, no rashes or lesions. Initial Vital Signs Initial Vital Signs: Vital Signs Temperature 98.1 F 08/27/18 01:10 Pulse Rate 103 H 08/27/18 01:10 Respiratory Rate 18 08/27/18 01:10 Blood Pressure 115/71 08/27/18 01:10 Pulse Oximetry 98 08/27/18 01:10 Course Orders Ordered: ED Orders 08/27/18 01:18 US abdomen complete Stat 08/27/18 01:40 Complete Blood Count AUTO DIFF Stat Comprehensive Metabolic Panel Stat Lipase Stat Discontinued Medications Sodium Chloride (Normal Saline 0.9%) 1,000 mls @ 150 mls/hr IV CONT BRANDYN Last Infusion: 08/27/18 04:11 Dose: 150 mls/hr Admin: 08/27/18 01:49 Dose: 150 mls/hr Ketorolac Tromethamine (Toradol) 30 mg IV NOW ONE Stop: 08/27/18 01:18 Last Admin: 08/27/18 01:49 Dose: 30 mg Ondansetron HCl (Zofran) 4 mg IV NOW ONE Stop: 08/27/18 01:18 Last Admin: 08/27/18 01:49 Dose: 4 mg Vital Signs - 8 hr 08/27/18 01:10 08/27/18 02:30 08/27/18 03:25 Temperature 98.1 F Pulse Rate 103 H 90 88 Respiratory Rate 18 18 18 Blood Pressure 115/71 Blood Pressure [Left Arm] 121/75 100/50 L Pulse Oximetry 98 98 96 08/27/18 04:00 Temperature Pulse Rate 80 Respiratory Rate 18 Blood Pressure Blood Pressure [Left Arm] 104/57 L Pulse Oximetry 98 MDM - Abdominal Pain Lab Data Attestation: I reviewed the patient's lab results. Result diagrams: 08/27/18 01:40 08/27/18 01:40 Lab Results 08/27/18 08/27/18 Range/Units 01:40 01:40 WBC 6.3 (4.5-11.0) X10^3/uL RBC 3.92 L (4.0-5.2) X10^6/uL Hgb 12.3 (12.0-16.0) g/dL Hct 37.5 (36-46) % MCV 95.8 (80-100) fL MCH 31.5 (26-34) PG MCHC 32.9 (30-36) % RDW 13.5 (11.6-14.8) % Plt Count 348 (150-400) X10^3/uL Neut % (Auto) 46.5 L (50-75) % Lymph % (Auto) 40.0 (25-40) % [place] % (Auto) 10.5 (3-14) % Eos % (Auto) 2.2 (2-4) % Baso % (Auto) 0.8 (0-2) % Neut # (Auto) 2900 (9468-2860) /uL Lymph # (Auto) 2500 (3666-5424) /uL [place] # (Auto) 700 (0-900) /uL Eos # (Auto) 100 (0-450) /uL Baso # (Auto) 0 (0-100) /uL Sodium 143 (137-145) mmol/L Potassium 3.9 (3.4-5.1) mmol/L Chloride 102 (98-107) mmol/L Carbon Dioxide 25 (22-32) mmol/L BUN 11 (7-17) mg/dL Creatinine 0.80 (0.52-1.04) mg/dL Estimated GFR > 60.0 (>60) mL/min BUN/Creatinine Ratio 13.8 (6-22) Glucose 101 H (70-100) mg/dL Calcium 8.7 (8.4-10.2) mg/dL Total Bilirubin 0.2 (0.2-1.3) mg/dL AST 30 (14-36) IU/L ALT 30 (9-52) IU/L Alkaline Phosphatase 46 (38-126) U/L Total Protein 7.5 (6.3-8.2) g/dL Albumin 4.5 (3.5-5.0) g/dL Globulin 3.0 (1.7-4.1) g/dL Albumin/Globulin Ratio 1.5 (1.0-2.8) Lipase 58 (23-300) U/L Point of care testing: Point of Care Testing Test Results Negative Urine Dip Bedside Urine Glucose Negative Bedside Urine Bilirubin - Negative Bedside Urine Ketone - Negative Urine Specific [place] 1.01 Bedside Urine Occult Blood - Negative Bedside Urine pH 5.5 Bedside Urine Protein - Negative Bedside Urine Urobilinogen - Negative Bedside Urine Nitrite - Negative Bedside Urine Leukocytes - Negative Esterase Imaging Data US - abdomen: Radiologist's impression: Liver calcifications measuring 1.2 cm may indicate prior granulomatous disease. Gallstone measuring 9 mm. Gallbladder wall thickness is upper limits of normal measuring 2.7 mm. No bile duct dil ation, no pericholecystic fluid, bilateral kidneys appear normal, no hydro, spleen appears normal. Aorta is normal in diameter at the visualized IVC appears normal. Visualized pancreas appears normal. MDM Narrative Medical decision making narrative: per patient's past history she has responded well to Toradol for pain control. Because patient has known kidney stones and she has had changes recently of as well as a history of alcohol abuse basic labs and ultrasound were repeated to make sure there are no other causes of her pain today. Patient has had some improvement with Toradol lab work and ultrasound imaging do not show any signs of cholecystitis, no changes to urine suggesting UTI, lab work Um patient exam/HPI does not suggest an alternative diagnosis. Patient has follow-up arranged with General surgery. We discussed she could try mobic for pain, she states toradol is not always helpful. Discharge Plan Departure Patient Disposition: Home Clinical Impression: Cholelithiasis Discharge Date/Time: 08/27/18 04:10 Interventions: ED Discharge Assessment Last Done: 08/27/18 04:05 Instructions: DI for Gallstones Activity Restrictions/Additional Instructions: Follow up with general surgery for further discussion about having your gallbladder removed. You may continue with ibuprofen up to 600mg every 6 hours as needed for pain. You may take Tylenol up to a 1000 mg every 8 hr as needed but do not take this if your drinking alcohol regularly. You may take mobic twice daily instead of ibuprofen but do not take with ibuprofen. Return for fevers greater than 100.4, persistent vomiting, black or bloody stools, worsening or other new or concerning symptoms. Prescriptions: New meloxicam [Mobic] 7.5 mg tablet 7.5 mg PO BID PRN (Reason: pain) Qty: 10 RF: 0 No Action alprazolam 0.5 mg tablet 0.5 mg PO BID RF: 0 hydroxyzine pamoate 25 mg capsule 25 mg PO Q6-8H PRNRF: 0 ranitidine HCl 150 mg capsule 150 mg PO BEDTIME RF: 0 trazodone 50 MG tablet 100 mg PO HS Qty: 0 RF: 0 venlafaxine 75 mg tablet 225 mg PO BID Qty: 180 RF: 3 methocarbamol 750 mg tablet 750 mg PO BEDTIME Qty: 30 RF: 5 acetaminophen [Tylenol Extra Strength] 500 mg tablet 1,000 mg PO Q6H PRN (Reason: fever or pain) Qty: 240 RF: 1 ibuprofen 800 mg tablet 800 mg PO Q8H PRN (Reason: pain) Qty: 90 RF: 0 betamethasone dipropionate 0.05 % lotion 1 applictn TOP BID Qty: 60 RF: 5 beclomethasone diprop (AQ) [Beconase AQ] 42 mcg (0.042 %) spray,non-aerosol 1 spray NASAL BID Qty: 25 RF: 5 hydrocodone-acetaminophen 5-325 mg tablet 1 tab PO Q4-6H PRN (Reason: pain) Qty: 10 RF: 0 Referrals: Chevy Marmolejo MD [Primary Care Provider] - ED Cosign/Signout Cosign ED Attending Cosignature Attestation: I was immediately available in the department for consultation. This documentation has been reviewed and I agree with assessment and plan. Supervised by Justina Boo DO
[2018-08-27] MEDS: KETOROLAC 60 MG/2 ML VIAL 30 MG IV (01:49)
[2018-08-27] MEDS: SODIUM CHLORIDE 0.9% 1,000 ML 150 ML IV (01:49)
[2018-08-27] MEDS: ONDANSETRON 4 MG/2 ML INJ IV (01:49)
[2018-08-27 01:52] LABS: Add Manual Diff / Slide Review NO; Basophils Absolute Auto 0 /uL (0-100); Basophils Percent Auto 0.8 % (0-2); Eosinophils Absolute Auto 100 /uL (0-450); Eosinophils Percent Auto 2.2 % (2-4); Hematocrit 37.5 % (36-46); Hemoglobin 12.3 g/dL (12.0-16.0); Lymphocytes Absolute Auto 2500 /uL (1100-4500); Mean Corpuscular HGB Conc 32.9 % (30-36); Mean Corpuscular Hemoglobin 31.5 PG (26-34); Mean Corpuscular Volume 95.8 fL (80-100); Monocytes Absolute Auto 700 /uL (0-900); Monocytes Percent Auto 10.5 % (3-14); Neutrophils Absolute Auto 2900 /uL (1500-7000); Neutrophils Percent Auto 46.5 % (50-75); Platelet Count 348 X10^3/uL (150-400); Red Blood Cell Count 3.92 X10^6/uL (4.0-5.2); Red Cell Distribution Width 13.5 % (11.6-14.8); White Blood Cell Count 6.3 X10^3/uL (4.5-11.0)
[2018-08-27 02:00] LABS: Alanine Aminotransferase 30 IU/L (9-52); Albumin 4.5 g/dL (3.5-5.0); Albumin Globulin Ratio 1.5 (1.0-2.8); Alkaline Phosphatase 46 U/L (38-126); Aspartate Aminotransferase 30 IU/L (14-36); BUN Creatinine Ratio 13.8 (6-22); Bilirubin Total 0.2 mg/dL (0.2-1.3); Blood Urea Nitrogen 11 mg/dL (7-17); Calcium 8.7 mg/dL (8.4-10.2); Carbon Dioxide 25 mmol/L (22-32); Chloride 102 mmol/L (98-107); Estimated Glomerular Filt Rate > 60.0 mL/min (>60); Glucose 101 mg/dL (70-100); HEMOLYSIS < 15 (0-50); Lipase 58 U/L (23-300); Potassium 3.9 mmol/L (3.4-5.1); Sodium 143 mmol/L (137-145); Total Protein 7.5 g/dL (6.3-8.2)
[2018-08-27 02:30] VITALS: BP 121/75; PULSE 90; RESP 18; O2SAT 98
[2018-08-27 03:25] VITALS: BP 100/50; PULSE 88; RESP 18; O2SAT 96
[2018-08-27 04:00] VITALS: BP 104/57; PULSE 80; RESP 18; O2SAT 98
== END 2018-08-27 04:10 | disposition home or self-care (01) ==
PROVIDERS: Emergency Provider Emergency Medicine; PCP Student in an Organized Health Care Education/Training Program
DX: K80.20 Calculus of gallbladder without cholecystitis without obstruction (principal)
CPT/HCPCS: 36591; 76700; 80053; 81003; 81025; 83690; 85025; 96361; 96374; 96375; 99283; 99284; J1885; J2405

== ENCOUNTER 2018-09-16 09:32 | Day surgery (SDC) | payer OTHER, MEDICAID, SELFPAY ==
[2018-09-10 15:12] VITALS: BMI 28.3
[2018-09-16] VITALS (28 sets, daily range): BP systolic 100–142; BP diastolic 48–89; PULSE 77–107; RESP 8–22; TEMP 36.2–36.9; O2SAT 92–100; BMI 28.3; BMI 29.0
--- NOTE | 2018-09-16 | PATH_ITS ---
[facility] Accession Number: [id number] . 01 Material submitted: . PART A: GALLBLADDER PART B: PORTAL LYMPH NODE . 02 Diagnosis: A. Gallbladder, Cholecystectomy: Chronic cholecystitis. Negative for neoplasm. . B. Portal Lymph Node, Excision: One benign lymph node. No evidence of neoplasm. I09/20/2018 . 02 Electronically signed: . Jose Torres MD, PhD, Pathologist NPI- [id number] . 01 Gross description: . (A) Received in formalin, labeled gallbladder, is an opened gallbladder (length-7.5 cm, diameter-2.4 cm) with ramirez-pink, smooth shiny serosa and a patent cystic duct. No lymph nodes are identified. The mucosa is mendoza, smooth and flat. The wall is up to 0.1 cm thick. No nodules, masses or lesions are identified. No calculi are submitted. Section code: (A1) cystic duct resection margin and two serial sections from the body; (A2) two longitudinal sections from the fundus. (B) Received in formalin, labeled portal lymph node, is a lymph node (1.0 x 0.6 x 0.5 cm). Bisected and entirely submitted in cassette B1. ([id number]) /MRV . 02 Pathologist provided ICD-10: K81.1 . 02 CPT . 188145, [id number] Performed at: 01 [facility] [address] [id number] MD Vahid Dhaliwal MD Phone: [phone] Performed at: [address] [facility] [id number] [place], [place] [id number] MD Kait Mcdonnell MD Phone: [phone]
[2018-09-16] MEDS: LACTATED RINGERS 1,000 ML 100 ML IV ×2 (10:05→18:21)
--- NOTE | 2018-09-16 11:21 | PM.PREOP ---
Pre-operative Note Interval Note History & Physical reviewed/Exam performed by Physician: Yes Changes to H&P: No H&P completed within 30 days and has changed as indicated here:: Patient was concerned about going home due to stress at home but stated that she wanted go home because she had to get her child to the walk-in clinic tomorrow.
[2018-09-16] MEDS: CEFAZOLIN 2 GM/100 ML FROZ.PIGGY IV (11:29)
--- NOTE | 2018-09-16 11:59 | SUR.OPER ---
Supine on padded OR bed, head on pillow, arms secured on padded arm boards at <90 degrees abduction, legs uncrossed, safety belt at thigh, tape over blanket over lower legs.
[2018-09-16] MEDS: IOPAMIDOL 50 ML VIAL INJ (12:08)
[2018-09-16] MEDS: BUPIVACAINE 0.5% (PF) VIAL 30 ML INJ (12:09)
--- NOTE | 2018-09-16 12:51 | DI.RAD.S_ITS ---
PROCEDURE: XR CHOLANGIOGRAM OPERATIVE INDICATIONS: LAPRASCOPIC CHLOECTOMY COMPARISON: None. FINDINGS: Biliary ducts: The surgeon injected contrast into the biliary ducts after cannulation of the cystic duct stump. Visualized intra- and extrahepatic bile ducts are normal in caliber, without strictures. No intraluminal filling defects to suggest retained ductal stones or sludge. No evidence for iatrogenic ductal injury. Duodenum: Contrast flows promptly through the sphincter of Oddi into the duodenum, which appears normal in caliber. IMPRESSION: Normal intraoperative cholangiogram. Dictated by: Susan Gentile M.D. on 09/16/2018 at 13:21 Approved by: Susan Gentile M.D. on 09/16/2018 at 13:22
[2018-09-16] MEDS: fentaNYL 100 MCG/2 ML INJ 50 MCG IV ×5 (13:29→17:01)
[2018-09-16] MEDS: HYDROMORPHONE 2 MG INJ 0.5 MG IV ×4 (13:34→14:20)
--- NOTE | 2018-09-16 14:06 | PM.OP.1 ---
Operative Date/Time/Diagnoses Date of procedure: 09/16/18 Time of procedure: 13:32 Pre-op diagnosis: cholelithiasis. Right upper quadrant pain. Post-op diagnosis: other ( No gallstones seen. Right upper quadrant pain. Mild cholecystitis.) Procedure & Clinicians Procedure: Laparoscopic cholecystectomy with intraoperative cholangiogram Same procedure as scheduled: Yes Indications: patient with an ultrasound showing gallstones and having history is suggestive of gallbladder disease Click Yes if Unassisted: Yes Anesthesia Type: General Operative Notes Findings: mildly inflamed gallbladder with adhesions of omentum to its surface. Normal cholangiogram. I did not find any gallstones in the gallbladder Despite the ultrasound report. Closure Type: primary Specimen(s): other ( Gallbladder) Procedure in detail: the patient was placed supine on the operating room table underwent general endotracheal anesthesia. She was prepped and draped in usual fashion. Local anesthetic was infiltrated and a small incision made through an old scar in the infraumbilical fold. Was carried down under direct vision to the peritoneum. Stay sutures of 0 Vicryl were placed in the fascia. And is cannula was inserted and the abdomen insufflated. The patient was repositioned 3 additional ports placed under the right costal margin. The gallbladder was identified is a slightly white clips and structure that had omentum attached to it I took this down using blunt dissection cautery. The gallbladder was grasped and elevated. Dissection began was begun near its end. I a vascular structure from surrounding structures and placed 3 clips across it and divided it leaving 2 in the patient. This appeared to be the artery. The cystic duct was identified and in dissecting it out a small hole was made in the distal gallbladder. Only liquid contents spilled. These were suctioned. I made a small intentional nancy in the cystic duct. A cholangiocatheter was inserted. A cholangiogram was performed that showed a normal ductal structure without filling defect and free flow into the duodenum. The catheter was removed and 3 clips were placed on the duct and was divided leaving 2 in the patient. There was a small branch that appeared to be a vascular structure that had a clip placed on it and it was divided leaving neck clip in the patient. There also were lymph nodes in the marleny hepaticus and I took 1 of these and submitted it. The gallbladder was then dissected from its bed in the liver without difficulty. It was detached and removed without difficulty through the umbilical cannula. The right upper quadrant irrigated and suctioned free of fluid. Hemostasis had been maintained throughout the case operation. Ports were all removed. The stay sutures at the umbilicus were tied. A 2 0 PDS was placed in the fascia between the stay sutures. The wounds were all irrigated and a 4 0 Vicryl subcuticular stitch was used to close the skin in all locations along with Steri-Strips. Dressings were applied. Patient was taken to the recovery area in good condition. Complications: none Condition: stable Disposition: PACU
[2018-09-16] MEDS: LORazepam 2 MG/ML SYRINGE 0.5 MG IV (14:08)
[2018-09-16] MEDS: LACTATED RINGERS 1,000 ML 42 ML IV (14:11)
--- NOTE | 2018-09-16 14:42 | SUR.PHASEI ---
1420 DR JOSEPH IN TO SPEAK WITH PT. 1443 PT DOSING OFF AND ON, APPEARS MORE RELAXED , TOLERATING ICE CHIPS, ABDOMEN REMAINS SOFT AND NON DISTENDED, BAND AIDS DRY AND INTACT. IV PATENT
--- NOTE | 2018-09-16 15:26 | SUR.PHASEI ---
PT CONTINUES TO SLEEP QUIETLY, VSS, IV PATENT.
--- NOTE | 2018-09-16 16:46 | SUR.PHASEI ---
PT SLEPT QUIETLY, STAES HER PAIN IS 5/10 AND TOLERABLE . IS TOLERATING PO JUICE, IV PATENT, ABDOMEN IS SOFT AND NONISTENDED WITH DRY AND INTACT BAND AIDS
--- NOTE | 2018-09-16 18:08 | SUR.PHASEI ---
4837 PT TRANSFERRED TO ACUTE CARE, PT ABLE TO AMBULATE FROM STRETCHER TO BED. IV REMAINS PATENT, ABDOMEN REMAINS SOFT AND NON DISTENDED WITH BAND AIDS DRY AND INTACT. BEDSIDE REPORT TO JAI JOSUE
[2018-09-16] MEDS: HYDROCODONE/ACET 5/325 TABLET 2 TAB PO (18:20)
--- NOTE | 2018-09-16 22:08 | PM.PNPO.1 ---
Subjective Date Patient Seen: 09/16/18 Time Patient Seen: 18:08 Interval history: The patient is having very difficult to control pain. She has numerous issues going home. There are some safety issues and she does not feel up to the those tonight. Exam Vital Signs (past 8 hours): - 09/16/18 14:10 09/16/18 14:20 09/16/18 14:35 Temperature Pulse Rate 82 100 H 94 H Respiratory Rate 12 12 10 L Blood Pressure 111/76 138/87 126/76 Pulse Oximetry 99 100 96 09/16/18 14:45 09/16/18 14:50 09/16/18 15:00 Temperature Pulse Rate 92 H 92 H 91 H Respiratory Rate 10 L 10 L 10 L Blood Pressure 120/73 120/73 109/69 Pulse Oximetry 97 97 97 09/16/18 15:10 09/16/18 15:25 09/16/18 15:49 Temperature Pulse Rate 91 H 90 92 H Respiratory Rate 8 L 11 L 10 L Blood Pressure 119/75 112/70 116/74 Pulse Oximetry 98 98 93 09/16/18 16:04 09/16/18 16:20 09/16/18 16:28 Temperature 97.8 F 98.0 F 98.5 F Pulse Rate 93 H 100 H 98 H Respiratory Rate 12 10 L 14 Blood Pressure 114/77 107/59 L 107/59 L Pulse Oximetry 93 93 95 09/16/18 16:45 09/16/18 17:00 09/16/18 17:25 Temperature 97.8 F Pulse Rate 96 H 96 H 98 H Respiratory Rate 22 20 18 Blood Pressure 113/69 115/74 116/74 Pulse Oximetry 95 97 96 09/16/18 17:30 09/16/18 18:00 09/16/18 18:30 Temperature 97.8 F 97.7 F 97.6 F Pulse Rate 93 H 107 H 77 Respiratory Rate 15 16 14 Blood Pressure 114/83 100/48 L 129/77 Pulse Oximetry 98 92 94 09/16/18 19:30 Temperature 97.9 F Pulse Rate 81 Respiratory Rate 19 Blood Pressure 127/75 Pulse Oximetry 96 Oxygen Delivery Method Room Air Oxygen Flow Rate 2 Assessment & Plan Post-op Postoperative Procedures Operation Date: 09/16/18 10:45 Actual Procedures Side Surgeon p Laparoscopic Cholecystectomy with Intraoperative Cholangiograms Zander Enriquez MD Postoperative status narrative: Will keep the patient overnight. Should plan to go home tomorrow. Quality VTE Deep Vein Thrombosis/Pulmonary Embolism Present on Admission: No
--- NOTE | 2018-09-16 23:58 | PC.NURSE ---
Addendum entered by Nancie Hernandez R.N. 09/17/18 06:38: States pain is 8/10 so medicated with Vicodin and ice pack applied to abdomen Original Note: Addendum entered by Nancie Hernandez R.N. 09/17/18 06:21: Reports she thinks she aspirated last night as awoke coughing causing incisional pain to exacerbate. Breath sounds CTA with RA sat of 99%. Reminded to splint incision to lessen pain when coughing as was discussed at start of shift; verbalizes understanding. Original Note: Addendum entered by Nancie Hernandez R.N. 09/17/18 00:40: Ambulated in huerta with IV pole and SBA. Now back in bed and pain is 8/10 so medicated with Vicodin. Original Note: Patient is alert and oriented. Breath sounds CTA with RA sat of 97%. HRR. Denies nausea. BT hypoactive; denies flatus. Bandaid dressings x4 to abdomen all CDI. Abdomen is soft but tender to touch. Voiding without dysuria, frequency or urgency; no incontinence. Turns self in bed. Out of bed with SBA. Refusing SCDs'. Fall risk score is moderate; calling for assistance appropriately.
[2018-09-17 00:09] VITALS: BP 146/87; PULSE 77; RESP 16; TEMP 37; O2SAT 96
[2018-09-17] MEDS: METHOCARBAMOL 500 MG TABLET 750 MG PO (00:32)
[2018-09-17] MEDS: TRAZODONE 100 MG TABLET PO (00:33)
[2018-09-17] MEDS: HYDROCODONE/ACET 5/325 TABLET 2 TAB PO ×3 (00:33→11:26)
[2018-09-17] MEDS: DOCUSATE 100 MG CAPSULE PO ×2 (00:38→09:11)
[2018-09-17] MEDS: LACTATED RINGERS 1,000 ML 100 ML IV (06:10)
[2018-09-17 06:14] VITALS: BP 135/81; PULSE 76; RESP 16; TEMP 36.5; O2SAT 99
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
[2018-09-17] MEDS: VENLAFAXINE 37.5 MG TABLET 225 MG PO (09:11)
--- NOTE | 2018-09-17 11:34 | PC.NURSE ---
Genaro is keeping down solid foods, urinating normally, and able to ambulate freely. She was seen by MERCHANDISE DIRECTOR. Her abd. bandaids are clean/dry/intact. Genaro is using ice packs to abd. to help with pain. She is taking Thornton for pain. She verbalizes understanding of all disch. instructions and has Thornton Rx and bowel med Rx X 2 in hand. She is accompanied to home by her Mother in stable condition.
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
--- NOTE | 2018-09-18 11:13 | CM.DPNOTE ---
Faxed clinical to [facility] per request. JW
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
== END 2018-09-17 11:43 | disposition home or self-care (01) ==
LOC: OR 14:17 → AC 18:24
PROVIDERS: PCP Student in an Organized Health Care Education/Training Program; Visit Provider Specialist
PROC: 0FT44ZZ Resection of Gallbladder, Percutaneous Endoscopic Approach (ICD-10-PCS; CPT 47562; principal; 2018-09-16 10:45)
DX: K81.1 Chronic cholecystitis (principal)
CPT/HCPCS: 47563; 74300; J0690; J1100; J1170; J1885; J2060; J2405; J2704; J3010

== ENCOUNTER 2018-09-28 19:20 | Emergency (ER) | payer OTHER, MEDICAID, SELFPAY ==
[2018-09-16 17:53] VITALS: BMI 29.0
[2018-09-28 19:24] VITALS: BP 140/89; PULSE 120; RESP 22; TEMP 36.9; O2SAT 96; BMI 25.8
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
[2018-09-28 20:23] VITALS: BP 141/93; PULSE 98; RESP 17; O2SAT 99
--- NOTE | 2018-09-28 20:46 | PC.NURSE ---
called cab per pt request at discharge.
== END 2018-09-28 20:51 | disposition home or self-care (01) ==
PROVIDERS: Emergency Provider Emergency Medicine; PCP Student in an Organized Health Care Education/Training Program
DX: F10.920 Alcohol use, unspecified with intoxication, uncomplicated (principal)
CPT/HCPCS: 99282

== ENCOUNTER → 2018-10-18 16:52 | Outpatient (CLI) | payer OTHER, MEDICAID, SELFPAY ==
[2018-10-04 12:32] VITALS: BMI 29.0
== END ==
PROVIDERS: PCP Student in an Organized Health Care Education/Training Program
DX: Z78.0 Asymptomatic menopausal state (principal)
CPT/HCPCS: 36415; 83001

== ENCOUNTER → 2019-01-13 17:01 | Outpatient (CLI) | payer OTHER, MEDICAID, SELFPAY ==
[2019-01-13 11:06] VITALS: BMI 29.0
[2019-01-13 19:06] LABS: Alanine Aminotransferase 22 IU/L (9-52); Albumin 4.5 g/dL (3.5-5.0); Albumin Globulin Ratio 1.5 (1.0-2.8); Alkaline Phosphatase 77 U/L (38-126); Aspartate Aminotransferase 33 IU/L (14-36); Bilirubin Total 0.5 mg/dL (0.2-1.3); Bilirubin Unconjugated 0.2 mg/dL (0.0-1.1); HEMOLYSIS < 15 (0-50); Lipase 97 U/L (23-300); Total Protein 7.5 g/dL (6.3-8.2)
== END ==
PROVIDERS: PCP Student in an Organized Health Care Education/Training Program; Visit Provider Student in an Organized Health Care Education/Training Program
DX: K70.10 Alcoholic hepatitis without ascites (principal)
CPT/HCPCS: 36415; 80076; 83690

== ENCOUNTER → 2019-11-04 15:22 | Outpatient (CLI) | payer OTHER, MEDICAID, SELFPAY ==
[2019-01-13 11:06] VITALS: BMI 29.0
[2019-11-04 16:42] LABS: Hematocrit 39.8 % (36-46); Hemoglobin 13.1 g/dL (12.0-16.0); Mean Corpuscular HGB Conc 32.8 % (30-36); Mean Corpuscular Hemoglobin 30.4 PG (26-34); Mean Corpuscular Volume 92.5 fL (80-100); Platelet Count 376 X10^3/uL (150-400); White Blood Cell Count 7.7 X10^3/uL (4.5-11.0)
[2019-11-04 17:06] LABS: Alanine Aminotransferase 26 IU/L (<35); Albumin 4.4 g/dL (3.5-5.0); Albumin Globulin Ratio 1.3 (1.0-2.8); Alkaline Phosphatase 85 U/L (38-126); Aspartate Aminotransferase 26 IU/L (14-36); BUN Creatinine Ratio 17.1 (6-22); Bilirubin Total 0.4 mg/dL (0.2-1.3); Blood Urea Nitrogen 13 mg/dL (7-17); Calcium 9.2 mg/dL (8.4-10.2); Carbon Dioxide 28 mmol/L (22-32); Chloride 102 mmol/L (98-107); Estimated Glomerular Filt Rate > 60.0 mL/min (>60); Globulin 3.4 g/dL (1.7-4.1); Glucose 101 mg/dL (70-100); HEMOLYSIS < 15 (0-50); Potassium 4.2 mmol/L (3.4-5.1); Sodium 138 mmol/L (137-145); Total Protein 7.8 g/dL (6.3-8.2)
== END ==
PROVIDERS: PCP Student in an Organized Health Care Education/Training Program; Referring Provider Student in an Organized Health Care Education/Training Program; Visit Provider Student in an Organized Health Care Education/Training Program
DX: J34.89 Other specified disorders of nose and nasal sinuses (principal); R04.0 Epistaxis; F10.21 Alcohol dependence, in remission; Z79.899 Other long term (current) drug therapy
CPT/HCPCS: 36415; 80053; 85027

== ENCOUNTER 2021-08-23 18:23 | Emergency (ER) | payer OTHER, MEDICAID, SELFPAY ==
[2020-04-30 09:21] VITALS: BMI 29.0
[2021-08-23 18:27] VITALS: BP 152/94; PULSE 125; RESP 16; TEMP 36; O2SAT 95; BMI 33.4
[2021-08-23 19:12] LABS: Add Manual Diff / Slide Review NO; Basophils Absolute Auto 100 /uL (0-100); Eosinophils Absolute Auto 100 /uL (0-450); Eosinophils Percent Auto 1.9 % (2-4); Hematocrit 41.1 % (36-46); Hemoglobin 13.8 g/dL (12.0-16.0); Lymphocytes Absolute Auto 2200 /uL (1100-4500); Mean Corpuscular HGB Conc 33.7 % (30-36); Mean Corpuscular Hemoglobin 31.4 PG (26-34); Mean Corpuscular Volume 93.3 fL (80-100); Monocytes Absolute Auto 800 /uL (0-900); Monocytes Percent Auto 10.8 % (3-14); Neutrophils Absolute Auto 4300 /uL (1500-7000); Neutrophils Percent Auto 57.3 % (50-75); Platelet Count 297 X10^3/uL (150-400); Red Blood Cell Count 4.41 X10^6/uL (4.0-5.2); White Blood Cell Count 7.5 X10^3/uL (4.5-11.0)
[2021-08-23 19:18] LABS: Alanine Aminotransferase 63 IU/L (<35); Albumin 4.8 g/dL (3.5-5.0); Albumin Globulin Ratio 1.4 (1.0-2.8); Alkaline Phosphatase 73 U/L (38-126); Aspartate Aminotransferase 67 IU/L (14-36); Bilirubin Total 0.5 mg/dL (0.2-1.3); Blood Urea Nitrogen 13 mg/dL (7-17); Calcium 9.1 mg/dL (8.4-10.2); Carbon Dioxide 24 mmol/L (22-32); Chloride 108 mmol/L (98-107); Estimated Glomerular Filt Rate > 60.0 mL/min (>60); Globulin 3.5 g/dL (1.7-4.1); Glucose 113 mg/dL (70-100); HEMOLYSIS < 15 (0-50); Potassium 4.3 mmol/L (3.4-5.1); Sodium 143 mmol/L (137-145); Total Protein 8.3 g/dL (6.3-8.2)
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
--- NOTE | 2021-08-23 19:37 | DI.CT.S_ITS ---
PROCEDURE: CT ABDOMEN PELVIS W CON INDICATIONS: RLQ pain TECHNIQUE: After the administration of oral and IV contrast, axial sections were acquired from the lung bases to the pubic symphysis. Coronal and sagittal reformats were performed. For radiation dose reduction, the following was used: automated exposure control, adjustment of mA and/or kV according to patient size. COMPARISON: [facility], CT, CT ABDOMEN PELVIS WITH CONTRAST, 01/02/2019, 1:12. FINDINGS: Image quality: Excellent. Lung bases: Bilateral lower lobe infiltrates consistent with pneumonia. There is a moderate-sized hernia. Heart: No significant findings. ABDOMEN: Liver: Normal size. Mild hepatic steatosis. A calcified granuloma is seen in liver. Gallbladder: Surgically removed. Biliary ducts: Unremarkable. Pancreas: Unremarkable. Spleen: Unremarkable. Adrenal Glands: Unremarkable. Kidneys and Ureters: Unremarkable. Stomach and Bowel: Stomach, small bowel loops, and colon are normal in caliber. Appendix is normal. There is a moderate amount of stool in colon. Peritoneum: No abnormal intraperitoneal fluid. No free air. Ventral Wall: No hernia. Abdominal Nodes: No retroperitoneal or mesenteric adenopathy by size criteria. Vessels: Aorta and inferior vena cava are normal in size. PELVIS: Pelvic Organs: Unremarkable. Bladder: Unremarkable. Pelvic Nodes: No enlarged lymph nodes. Miscellaneous: No inguinal hernias are seen. Bones: Unremarkable. IMPRESSION: 1. Normal appendix. A cause for right lower quadrant pain is not identified. 2. Bilateral lower lobe pneumonia. 3. Moderate-sized hernia. Dictated by: Susan Gentile M.D. on 08/23/2021 at 20:59 Approved by: Susan Gentile M.D. on 08/23/2021 at 21:09
[2021-08-23 21:26] LABS: Lipase 127 U/L (23-300)
[2021-08-23 22:04] VITALS: BP 127/81; PULSE 108; RESP 19; O2SAT 95
== END 2021-08-23 22:09 | disposition home or self-care (01) ==
PROVIDERS: Emergency Provider Emergency Medicine; PCP Student in an Organized Health Care Education/Training Program
DX: K62.5 Hemorrhage of anus and rectum (principal); R10.31 Right lower quadrant pain; R74.01 Elevation of levels of liver transaminase levels; R03.0 Elevated blood-pressure reading, without diagnosis of hypertension
CPT/HCPCS: 36415; 74177; 80053; 81003; 81025; 83690; 85025; 93005; 93010; 99284

== ENCOUNTER → 2021-09-02 17:07 | Outpatient (CLI) | payer OTHER, MEDICAID, SELFPAY ==
[2020-04-30 09:21] VITALS: BMI 29.0
[2021-09-02 18:06] LABS: Hematocrit 43.1 % (36-46); Hemoglobin 14.5 g/dL (12.0-16.0); Mean Corpuscular HGB Conc 33.7 % (30-36); Mean Corpuscular Hemoglobin 31.3 PG (26-34); Mean Corpuscular Volume 92.8 fL (80-100); Platelet Count 281 X10^3/uL (150-400); Red Blood Cell Count 4.65 X10^6/uL (4.0-5.2); Red Cell Distribution Width 13.6 % (11.6-14.8); White Blood Cell Count 6.3 X10^3/uL (4.5-11.0)
[2021-09-02 18:25] LABS: Alanine Aminotransferase 86 IU/L (<35); Albumin 5.1 g/dL (3.5-5.0); Albumin Globulin Ratio 1.3 (1.0-2.8); Alkaline Phosphatase 80 U/L (38-126); Aspartate Aminotransferase 82 IU/L (14-36); Bilirubin Total 0.5 mg/dL (0.2-1.3); Bilirubin Unconjugated 0.3 mg/dL (0.0-1.1); Globulin 3.9 g/dL (1.7-4.1); HEMOLYSIS < 15 (0-50)
== END ==
PROVIDERS: PCP Student in an Organized Health Care Education/Training Program; Referring Provider Student in an Organized Health Care Education/Training Program; Visit Provider Student in an Organized Health Care Education/Training Program
DX: K62.5 Hemorrhage of anus and rectum (principal); K70.10 Alcoholic hepatitis without ascites
CPT/HCPCS: 36415; 80076; 85027

== ENCOUNTER → 2021-09-25 09:22 | Outpatient (CLI) | payer OTHER, MEDICAID, SELFPAY ==
[2020-04-30 09:21] VITALS: BMI 29.0
[2021-09-25 12:08] LABS: COVID19 -Nasal RAPID Negative (Negative)
== END ==
PROVIDERS: PCP Student in an Organized Health Care Education/Training Program; Visit Provider Nurse Practitioner Family
DX: Z20.822 Contact with and (suspected) exposure to COVID-19 (principal)
CPT/HCPCS: 87635; C9803

== ENCOUNTER → 2021-09-26 13:36 | Outpatient (CLI) | payer OTHER, MEDICAID, SELFPAY ==
[2020-04-30 09:21] VITALS: BMI 29.0
[2021-09-26 15:06] LABS: COVID-19 CEPHEID PCR (VTM/NP) Negative (Negative)
== END ==
PROVIDERS: PCP Student in an Organized Health Care Education/Training Program; Visit Provider Family Medicine Sleep Medicine
DX: Z20.822 Contact with and (suspected) exposure to COVID-19 (principal)
CPT/HCPCS: C9803; U0003; U0005

== ENCOUNTER 2021-12-03 20:01 | Emergency (ER) | payer OTHER, MEDICAID, SELFPAY ==
[2020-04-30 09:21] VITALS: BMI 29.0
[2021-12-03 20:05] VITALS: BP 136/79; PULSE 106; RESP 16; TEMP 36.3; O2SAT 94; BMI 30.7
[2021-12-03 20:34] LABS: Add Manual Diff / Slide Review NO; Basophils Absolute Auto 100 /uL (0-100); Basophils Percent Auto 0.9 % (0-2); Eosinophils Absolute Auto 100 /uL (0-450); Eosinophils Percent Auto 1.6 % (2-4); Hematocrit 41.9 % (36-46); Lymphocytes Absolute Auto 2800 /uL (1100-4500); Lymphocytes Percent Auto 41.1 % (25-40); Mean Corpuscular HGB Conc 33.4 % (30-36); Mean Corpuscular Hemoglobin 31.3 PG (26-34); Mean Corpuscular Volume 93.6 fL (80-100); Monocytes Absolute Auto 500 /uL (0-900); Monocytes Percent Auto 7.8 % (3-14); Neutrophils Absolute Auto 3400 /uL (1500-7000); Neutrophils Percent Auto 48.6 % (50-75); Platelet Count 357 X10^3/uL (150-400); Red Blood Cell Count 4.48 X10^6/uL (4.0-5.2); Red Cell Distribution Width 13.3 % (11.6-14.8); White Blood Cell Count 6.9 X10^3/uL (4.5-11.0)
[2021-12-03 20:38] LABS: Alanine Aminotransferase 91 IU/L (<35); Albumin 4.5 g/dL (3.5-5.0); Albumin Globulin Ratio 1.4 (1.0-2.8); Alkaline Phosphatase 70 U/L (38-126); Aspartate Aminotransferase 78 IU/L (14-36); Bilirubin Total 0.4 mg/dL (0.2-1.3); Blood Urea Nitrogen 15 mg/dL (7-17); Calcium 8.5 mg/dL (8.4-10.2); Carbon Dioxide 24 mmol/L (22-32); Chloride 106 mmol/L (98-107); Estimated Glomerular Filt Rate > 60 mL/min (>60); Globulin 3.3 g/dL (1.7-4.1); Glucose 106 mg/dL (70-100); HEMOLYSIS < 15 (0-50); Lipase 78 U/L (23-300); Potassium 4.3 mmol/L (3.4-5.1); Sodium 140 mmol/L (137-145); Total Protein 7.8 g/dL (6.3-8.2)
--- NOTE | 2021-12-03 23:26 | PC.NURSE ---
Called patient, no answer. Not in lobby. Did not inform staff of departure.
== END 2021-12-03 23:30 | disposition left against medical advice (07) ==
PROVIDERS: Emergency Provider Emergency Medicine; PCP Student in an Organized Health Care Education/Training Program
DX: R10.9 Unspecified abdominal pain (principal)
CPT/HCPCS: 36415; 80053; 81003; 83690; 85025; 93005; 99283

== ENCOUNTER 2022-05-22 16:39 | Emergency (ER) | payer OTHER, MEDICAID, SELFPAY ==
[2020-04-30 09:21] VITALS: BMI 29.0
[2022-05-22] VITALS (10 sets, daily range): BP systolic 133–165; BP diastolic 70–91; PULSE 95–111; RESP 18; TEMP 36.2; O2SAT 92–95; BMI 30.7
--- NOTE | 2022-05-22 17:16 | DI.CT.S_ITS ---
PROCEDURE: CT HEAD/BRAIN WO CON INDICATIONS: headache TECHNIQUE: Noncontrast 4.5 mm thick angled axial sections acquired from the foramen magnum to the vertex, with coronal and sagittal reformats. For radiation dose reduction, the following was used: automated exposure control, adjustment of mA and/or kV according to patient size. COMPARISON: [facility], MR, BRAIN WITHOUT CONTRAST, 08/11/2017, 13:16. [facility], CT, CT HEAD WITHOUT CONTRAST, 05/19/2021, 0:19. [facility], CT, HEAD WITHOUT CONTRAST, 08/11/2017, 12:13. FINDINGS: Image quality: Excellent. CSF spaces: Basal cisterns are patent. No extra-axial fluid collections. Ventricles are normal in size and shape. Brain: There is a 0.8 cm hypodensity in the right basal ganglia, probably dilated perivascular space. When compared to the examinations, there is no significant change. No midline shift. No intracranial masses or hemorrhage. Cartwright-white matter interface is normal. Skull and face: Calvarium and visualized facial bones are intact, without suspicious lesions. Sinuses: Visualized sinuses and mastoids are clear. IMPRESSION: 1. No acute intracranial abnormalities. 2. A 0.8 cm hypodensity in the right basal ganglia is unchanged, most likely dilated perivascular space. Dictated by: Susan Gentile M.D. on 05/22/2022 at 17:38 Approved by: Susan Gentile M.D. on 05/22/2022 at 17:42
--- NOTE | 2022-05-22 17:16 | DI.RAD.S_ITS ---
PROCEDURE: XR CHEST 1V INDICATIONS: low O2 TECHNIQUE: One view of the chest was acquired. COMPARISON: [facility], CR, XR CHEST 1 VIEW, 07/11/2021, 2:06. FINDINGS: Surgical changes and devices: None. Lungs and pleura: Lungs are clear. No pleural effusions or pneumothorax. Mediastinum: Mediastinal contours appear normal. Heart size is normal. Bones and chest wall: No suspicious bony lesions. Overlying soft tissues appear unremarkable. IMPRESSION: No acute cardiopulmonary disease. Dictated by: Susan Gentile M.D. on 05/22/2022 at 17:48 Approved by: Susan Gentile M.D. on 05/22/2022 at 17:48
[2022-05-22 17:39] LABS: Add Manual Diff / Slide Review NO; Basophils Absolute Auto 100 /uL (0-100); Basophils Percent Auto 0.8 % (0-2); Eosinophils Absolute Auto 0 /uL (0-450); Eosinophils Percent Auto 0.4 % (2-4); Hematocrit 43.8 % (36-46); Hemoglobin 14.9 g/dL (12.0-16.0); Lymphocytes Absolute Auto 3400 /uL (1100-4500); Lymphocytes Percent Auto 38.9 % (25-40); Mean Corpuscular Hemoglobin 31.4 PG (26-34); Mean Corpuscular Volume 92.3 fL (80-100); Monocytes Absolute Auto 500 /uL (0-900); Neutrophils Absolute Auto 4700 /uL (1500-7000); Neutrophils Percent Auto 53.9 % (50-75); Platelet Count 358 X10^3/uL (150-400); Red Blood Cell Count 4.74 X10^6/uL (4.0-5.2); Red Cell Distribution Width 13.8 % (11.6-14.8); White Blood Cell Count 8.8 X10^3/uL (4.5-11.0)
--- NOTE | 2022-05-22 17:39 | PC.NURSE ---
pt discussed drinking a bottle of wine yesterday for her headache.
[2022-05-22 18:05] LABS: Alanine Aminotransferase 102 IU/L (<35); Albumin 4.9 g/dL (3.5-5.0); Albumin Globulin Ratio 1.2 (1.0-2.8); Alkaline Phosphatase 120 U/L (38-126); Aspartate Aminotransferase 83 IU/L (14-36); Bilirubin Total 0.4 mg/dL (0.2-1.3); Blood Urea Nitrogen 12 mg/dL (7-17); Calcium 8.9 mg/dL (8.4-10.2); Carbon Dioxide 23 mmol/L (22-32); Chloride 99 mmol/L (98-107); Creatine Kinase 194 U/L (30-135); Estimated Glomerular Filt Rate > 60 mL/min (>60); Glucose 111 mg/dL (70-100); HEMOLYSIS < 15 (0-50); Lipase 45 U/L (23-300); Potassium 4.3 mmol/L (3.4-5.1); Sodium 140 mmol/L (137-145); Total Protein 8.9 g/dL (6.3-8.2)
[2022-05-22 18:17] LABS: NT-proBNP (BNP-Adult 18+) 14 pg/mL (<125); Troponin I < 0.012 ng/mL (0.01-0.034)
[2022-05-22 18:20] LABS: CKMB % Relative Index 0.6 % (1.5-5.0); Creatine Kinase MB 1.11 ng/mL (<2.37)
[2022-05-22 18:27] LABS: Influenza A - CEPHEID Flu A NEGATIVE (NEGATIVE); Influenza B - CEPHEID Flu B NEGATIVE (NEGATIVE); Respiratory Syncytial Virus Negative (Negative)
[2022-05-22 18:32] LABS: COVID-19 CEPHEID 4-PLEX PCR Negative (Negative)
[2022-05-22] MEDS: KETOROLAC 30 MG/ML VIAL 15 MG IV (19:08)
[2022-05-22] MEDS: SODIUM CHLORIDE 0.9% 1,000 ML 1000 ML IV ×2 (19:08→23:22)
[2022-05-22 19:33] LABS: Reflexed Lactate in 2 Hours Y
[2022-05-22 21:08] LABS: Lactate 2HR (Lactic Acid Rflx) 2.7 mmol/L (0.7-2.1)
--- NOTE | 2022-05-22 21:48 | PC.NURSE ---
Pt sitting up in chair, room dark, talking on phone.
--- NOTE | 2022-05-22 22:23 | PC.NURSE ---
Pt states her 14 y/o and dog are at a local motel and she wishes to leave to be with them, updated pt on current plan of care and wait, pt requesting a taxi, offered pt local taxi number if she chooses. Pt requesting food, updated pt waiting to be seen by provider before able to feed her. Pt sitting in chair to reach charging cable and on phone, reports she is staying to further care at this time.
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
[2022-05-22] MEDS: ACETAMINOPHEN 325 MG TABLET 975 MG PO (23:26)
[2022-05-22] MEDS: METOCLOPRAMIDE 10 MG/2 ML INJ IV (23:27)
[2022-05-22] MEDS: VENLAFAXINE 37.5 MG TABLET 225 MG PO (23:36)
[2022-05-23] VITALS: PULSE 92; O2SAT 93
[2022-05-23 00:30] VITALS: PULSE 98; O2SAT 93
[2022-05-23 00:51] VITALS: BP 148/88; PULSE 90; RESP 18; O2SAT 94
== END 2022-05-23 01:00 | disposition home or self-care (01) ==
PROVIDERS: Emergency Medicine; Emergency Provider Emergency Medicine; PCP Student in an Organized Health Care Education/Training Program
DX: R51.9 Headache, unspecified (principal); F41.9 Anxiety disorder, unspecified; F43.0 Acute stress reaction; Z20.822 Contact with and (suspected) exposure to COVID-19
CPT/HCPCS: 0241U; 36415; 70450; 71045; 80053; 82550; 82553; 83605; 83690; 83880; 84484; 85025; 87040; 96361; 96374; 96375; 99284; 99285; J1885; J2765

== ENCOUNTER → 2023-04-18 17:14 | Outpatient (CLI) | payer OTHER, MEDICAID, SELFPAY ==
[2020-04-30 09:21] VITALS: BMI 29.0
--- NOTE | 2023-04-18 17:16 | DI.RAD.S_ITS ---
PROCEDURE: XR CLAVICLE LT INDICATIONS: Left clavicle fracture TECHNIQUE: 2 views of the clavicle were acquired. COMPARISON: None. FINDINGS: Bones: There is a moderately displaced, comminuted fracture of the left distal clavicle. No displaced rib fracture is seen. Soft tissues: No suspicious soft tissue calcifications. IMPRESSION: Moderately displaced, comminuted fracture of the left distal clavicle. Dictated by: Alexandr Parkinson M.D. on 04/18/2023 at 16:59 Approved by: Alexandr Parkinson M.D. on 04/18/2023 at 16:59
== END ==
PROVIDERS: Referring Provider Registered Nurse; Visit Provider Registered Nurse
DX: S42.032A Displaced fracture of lateral end of left clavicle, initial encounter for closed fracture (principal)
CPT/HCPCS: 73000

== ENCOUNTER 2023-04-23 17:24 | Emergency (ER) | payer OTHER, MEDICAID, SELFPAY ==
[2020-04-30 09:21] VITALS: BMI 29.0
[2023-04-23 17:34] VITALS: BP 145/87; PULSE 88; RESP 16; TEMP 36.6; O2SAT 99; BMI 31.8
--- NOTE | 2023-04-23 17:58 | PC.NURSE ---
Recent surgery, has scheduled follow up with orthopedics. out of pain medications. Presents in shoulder sling, CMS intact.
--- NOTE | 2023-04-23 18:25 | ED_ITS ---
HPI - Extremity Injury (Upper) <Sera Armenta PA-C - Last Filed: 04/23/23 18:31> General Chief Complaint: Extremity Injury, Upper Stated Complaint: lt shoulder, clavicle pain Time Seen by Provider: 04/23/23 17:40 Source: family Mode of arrival: Ambulatory History of Present Illness HPI narrative: Patient is a 47-year-old female who presents with left clavicle pain. She fell off a elevated bed on 03/26/2023 and fractured her clavicle. She is wearing a sling. She guevara s been seen in multiple different urgent care and emergency clinics. She presents today with increased pain because she has a history of muscle spasm and she thinks the twisting his cause more pain. She was seen just yesterday in [place] by an orthopedic provider and is awaiting a call back about a follow up orthopedic appointment in [place]. She is out of her pain medication but is taking 800 mg of ibuprofen every 6-8 hours. She also has previously been on Effexor and trazodone and has abruptly discontinued these because she ran out of the prescription. She is having difficulty sleeping because of this and is having headaches and zapping feelings in her head because of the discontinuation. She currently does not have a primary care but is attempting to get one. Related Data Home Medications Medication Instructions Recorded Confirmed omeprazole 20 mg capsule,delayed 20 mg PO DAILY 06/08/19 04/18/23 release Previous Rx's Medication Instructions Recorded acetaminophen 500 mg capsule 1,000 mg (2 x 500 mg) PO Q6H PRN 10/07/19 fever or pain #60 caps clobetasol 0.05 % lotion 1 applictn topical DAILY #118 mL 04/24/20 triamcinolone acetonide 55 mcg 1 spray intranasal BID #16.9 mL 04/24/20 nasal spray aerosol (Nasacort) loratadine 10 mg tablet 10 mg PO DAILY #90 tabs 08/12/21 methocarbamol 750 mg tablet 750 mg PO BID #180 tabs 08/12/21 fluticasone propionate 50 1 spray intranasal DAILY #18.2 mL 08/15/21 mcg/actuation nasal spray,suspension (Flonase Allergy Relief) hydroxyzine pamoate 25 mg capsule 25 mg PO BID #60 caps 09/05/21 trazodone 100 mg tablet 200 mg (2 x 100 mg) PO HS #180 tabs 10/09/21 alprazolam 0.5 mg tablet 0.5 mg PO DAILY PRN anxiety #30 03/29/22 tabs venlafaxine 75 mg tablet 225 mg (3 x 75 mg) PO BID #180 tabs 06/03/22 albuterol sulfate 90 mcg/actuation 2 puff inhalation QID PRN 06/06/22 aerosol inhaler shortness of breath or wheezing #6.7 grams ibuprofen 800 mg tablet 800 mg PO DAILY PRN pain #30 tabs 01/22/23 methocarbamol 750 mg tablet 750 mg PO Q8H PRN muscle spasm #20 04/18/23 tabs hydroxyzine HCl 25 mg tablet 25 mg PO TID PRN anxiety #30 tabs 04/23/23 trazodone 100 mg tablet 100 mg PO BEDTIME PRN sleep #30 04/23/23 tabs venlafaxine 75 mg tablet See Rx Instructions .Route 04/23/23 .COMPLEX #90 tabs Allergies Allergy/AdvReac Type Severity Reaction Status Date / Time meperidine [From DEMEROL] Allergy Mild Itching Verified 04/18/23 16:43 buspirone Allergy Palpitation Verified 04/23/23 17:34 s Review of Systems <Sera Armenta PA-C - Last Filed: 04/23/23 18:31> Review of Systems ROS Unobtainable: All systems reviewed & are unremarkable except as noted in HPI and below Patient History <Sera Armenta PA-C - Last Filed: 04/23/23 18:31> Medical History Cholelithiasis Chronic right shoulder pain Tendinitis Depression Fibromyalgia Surgical History History of ankle surgery Social History household members: family Smoking Status: Never smoker alcohol intake: current Smoking Status: Never smoker alcohol intake frequency: a few times a week Alcohol type: wine Substance Use Type: does not use Exam <Sera Armenta PA-C - Last Filed: 04/23/23 18:31> Narrative Exam Narrative: GENERAL: 47 year old patient appears stated age. Well-developed patient, in no distress. NEURO: AOx3. HEAD: Atraumatic. Normocephalic. EYES: Pupils equal round and reactive. Extraocular motions intact. No scleral icterus. No injection or drainage. ENT: Nose without bleeding or purulent drainage. Airway patent. RESPIRATORY: No distress EXTREMITIES: Tenderness over left clavicle without any skin changes. Neurovascular exam distal to the injury is intact. SKIN: No rash or erythema of visible areas Initial Vital Signs Initial Vital Signs: Vital Signs Temperature 98 F 04/23/23 17:34 Pulse Rate 88 04/23/23 17:34 Respiratory Rate 16 04/23/23 17:34 Blood Pressure 145/87 H 04/23/23 17:34 Pulse Oximetry 99 04/23/23 17:34 Oxygen Delivery Method Room Air 04/23/23 17:34 <Da Barcenas DO - Last Filed: 04/29/23 17:58> Initial Vital Signs Initial Vital Signs: Vital Signs Temperature 98 F 04/23/23 17:34 Pulse Rate 88 04/23/23 17:34 Respiratory Rate 16 04/23/23 17:34 Blood Pressure 145/87 H 04/23/23 17:34 Pulse Oximetry 99 04/23/23 17:34 Oxygen Delivery Method Room Air 04/23/23 17:34 Course <Sera Armenta PA-C - Last Filed: 04/23/23 18:31> Vital Signs Vital signs: Vital Signs - 8 hr 04/23/23 17:34 Temperature 98 F Pulse Rate 88 Respiratory Rate 16 Blood Pressure 145/87 H Pulse Oximetry 99 Oxygen Delivery Method Room Air <DO Chris Brush Last Filed: 04/29/23 17:58> Vital Signs Vital signs: Vital Signs - 8 hr 04/23/23 17:34 Temperature 98 F Pulse Rate 88 Respiratory Rate 16 Blood Pressure 145/87 H Pulse Oximetry 99 Oxygen Delivery Method Room Air MDM - Extremity Injury (Upper) <Sera Armenta PA-C - Last Filed: 04/23/23 18:31> [facility] Narrative Medical decision making narrative: It seems patient has tried to access care in multiple places but has not been able to see an orthopedist who can definitively assess whether or not she requires any operative repair, which is her question. She is also out of her psychiatric medications and is experiencing withdrawal symptoms from these. Discussed that I will not refill her opiate medications as she is almost a month out from her initial injury and the pain should be tolerable with Tylenol, ibuprofen, ice rest. I advised her that I will provide a 1 month refill of her antidepressants and her hydroxyzine for anxiety so that hopefully she can get more rest. She can follow up with [facility] by calling them to make an appointment for reassessment, but generally there is no need for intervention with clavicle fractures. She is no recent re-injury, trauma or fall that would make me think that she needs additional imaging today and in fact, she shows me a photo on her phone of the x-ray from yesterday. Patient's symptoms improved over duration of stay with above-stated therapies. Findings and discharge diagnosis discussed with patient/family followed by verbalization of understanding Return precautions discussed with patient/family whom verbalize understanding of diagnosis and plan Discharge Plan Departure Patient Disposition: Home Clinical Impression: Broken clavicle, Medication refill Instructions: DI for Clavicle Fracture-Adult Activity Restrictions/Additional Instructions: *You have been diagnosed with pain from left clavicle fracture and medication refill. I have refilled your Effexor, trazodone and hydroxyzine for 1 month. Hopefully this will buy you some time to find a primary care provider to establish care and get more refills. *What to do: *Please continue to take your regular medications as directed. [x] New medication prescriptions sent to your pharmacy: [facility] [ ] New medication written as a paper prescription [ ] No new medications given *Please follow up with your primary care provider in 2-3 days, call for an appointment. Let them know you were seen in the Emergency Department and that we ask that you be seen in follow up. We will electronically transmit a record of today's note if your PCP is in our system *If you do not have a primary care provider please contact the [facility] Resource line at [phone]. They will ask some questions about your medical history and help get you set up with a doctor in the community. *Return to Emergency Department if you should have any new, worsening or concerning symptoms, such as [fever greater than 101 F, shaking chills, worsening pain, persistent vomiting or other concerning symptoms]. Prescriptions: New hydroxyzine HCl 25 mg tablet 25 mg PO TID PRN (Reason: anxiety) Qty: 30 0RF venlafaxine 75 mg tablet See Rx Instructions .ROUTE .COMPLEX Qty: 90 0RF Rx Instructions: two tabs in the morning and one tab in the afternoon trazodone 100 mg tablet 100 mg PO BEDTIME PRN (Reason: sleep) Qty: 30 0RF No Action methocarbamol 750 mg tablet 750 mg PO Q8H PRN (Reason: muscle spasm) Qty: 20 0RF acetaminophen 500 mg capsule 1,000 mg PO Q6H PRN (Reason: fever or pain) Qty: 60 2RF clobetasol 0.05 % lotion 1 applictn TOP DAILY Qty: 118 1RF triamcinolone acetonide [Nasacort] 55 mcg aerosol,spray 1 spray NASAL BID Qty: 16.9 5RF Rx Instructions: administer into each nostril twice a day methocarbamol 750 mg tablet 750 mg PO BID Qty: 180 1RF Hold Instructions: Patient discharged from clinic loratadine 10 mg tablet 10 mg PO DAILY Qty: 90 1RF Hold Instructions: Patient discharged from clinic fluticasone propionate [Flonase Allergy Relief] 50 mcg/actuation spray,suspension 1 spray NASAL DAILY Qty: 18.2 3RF Rx Instructions: administer into each nostril hydroxyzine pamoate 25 mg capsule 25 mg PO BID Qty: 60 5RF Hold Instructions: Patient discharged from clinic trazodone 100 mg tablet 200 mg PO HS Qty: 180 1RF Hold Instructions: Patient discharged from clinic alprazolam 0.5 mg tablet 0.5 mg PO DAILY PRN (Reason: anxiety) Qty: 30 0RF venlafaxine 75 mg tablet 225 mg PO BID Qty: 180 4RF Hold Instructions: Patient discharged from clinic Rx Instructions: Take three tablets by mouth twice a day. albuterol sulfate 90 mcg/actuation HFA aerosol inhaler 2 puff INHALATION QID PRN (Reason: shortness of breath or wheezing) Qty: 6.7 11RF ibuprofen 800 mg tablet 800 mg PO DAILY PRN (Reason: pain) Qty: 30 0RF omeprazole 20 mg capsule,delayed release(DR/EC) 20 mg PO DAILY Hold Instructions: Temporary pantoprazole Referrals: [facility] [Provider Group] Stand Alone Forms: Patient Portal/API ED Sign-out <Da Barcenas, DO - Last Filed: 04/29/23 17:58> Cosign ED Attending Cosignature Attestation: Dr Barcenas Co-Sign Statement: I was available for consultation during this patient's emergency department visit. This chart is signed by myself for administrative purposes only. I did not have direct contact with this patient during this visit. They were seen independently by the APC.
== END 2023-04-23 18:06 | disposition home or self-care (01) ==
PROVIDERS: Emergency Provider Physician Assistant
DX: S42.002A Fracture of unspecified part of left clavicle, initial encounter for closed fracture (principal); W06.XXXA Fall from bed, initial encounter
CPT/HCPCS: 99281

== ENCOUNTER 2023-06-06 18:17 | Emergency (ER) | payer OTHER, MEDICAID, SELFPAY ==
[2020-04-30 09:21] VITALS: BMI 29.0
--- NOTE | 2023-06-06 18:24 | DI.RAD.S_ITS ---
PROCEDURE: XR SHOULDER LT MIN 2V INDICATIONS: fall recent surgery TECHNIQUE: 4 views of the shoulder were acquired. COMPARISON: [facility], [place], XR CLAVICLE LT, 04/18/2023, 17:28. [facility], [place], XR SHOULDER RT MIN 2V, 02/02/2018, 20:01. FINDINGS: Bones: Distal clavicle screw and plate fixation, without hardware complication. There is mild superior subluxation of the clavicle relative to the acromion. Soft tissues: No suspicious soft tissue calcifications. IMPRESSION: Mild superior subluxation of the clavicle relative to the acromion, which may indicate a [place] type 2 AC joint injury. Distal clavicle orif, without hardware complication. Dictated by: Riley Bales M.D. on 06/06/2023 at 17:39 Approved by: Riley Bales M.D. on 06/06/2023 at 17:41
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
[2023-06-06 18:28] VITALS: BP 153/95; PULSE 117; RESP 18; TEMP 36.6; O2SAT 95; BMI 30.7
[2023-06-06 18:47] VITALS: PULSE 98; RESP 14
== END 2023-06-06 18:54 | disposition home or self-care (01) ==
LOC: ED 18:36
PROVIDERS: Emergency Provider Emergency Medicine
DX: Z02.89 Encounter for other administrative examinations (principal); M25.512 Pain in left shoulder
CPT/HCPCS: 73030; 99282; 99283

== ENCOUNTER 2023-06-20 18:00 | Emergency (ER) | payer OTHER, MEDICAID, SELFPAY ==
[2020-04-30 09:21] VITALS: BMI 29.0
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
[2023-06-20 18:11] VITALS: BP 129/77; PULSE 97; RESP 20; TEMP 36.9; O2SAT 97
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
== END 2023-06-20 19:21 | disposition left against medical advice (07) ==
PROVIDERS: Emergency Provider Emergency Medicine
CPT/HCPCS: 99281

== ENCOUNTER 2023-06-22 13:38 | Emergency (ER) | payer OTHER, MEDICAID, SELFPAY ==
[2020-04-30 09:21] VITALS: BMI 29.0
[2023-06-22 13:42] VITALS: BP 124/92; PULSE 128; RESP 18; TEMP 36.4; O2SAT 96; BMI 32.1
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
--- NOTE | 2023-06-22 14:02 | ED_ITS ---
HPI - Psych General Chief Complaint: Psychiatric Symptoms Stated Complaint: BROKEN SHOULDER/JUST HAD SURGERY IN MAY Time Seen by Provider: 06/22/23 14:02 Source: patient Mode of arrival: Ambulatory History of Present Illness HPI Narrative: Patient reported to the ED for shoulder pain. I saw her in the huerta and went into the room to examine her but she was no longer in the room Related Data Home Medications Medication Instructions Recorded Confirmed omeprazole 20 mg capsule,delayed 20 mg PO DAILY 06/08/19 04/18/23 release Previous Rx's Medication Instructions Recorded acetaminophen 500 mg capsule 1,000 mg (2 x 500 mg) PO Q6H PRN 10/07/19 fever or pain #60 caps loratadine 10 mg tablet 10 mg PO DAILY #90 tabs 08/12/21 fluticasone propionate 50 1 spray intranasal DAILY #18.2 mL 08/15/21 mcg/actuation nasal spray,suspension (Flonase Allergy Relief) hydroxyzine pamoate 25 mg capsule 25 mg PO BID #60 caps 09/05/21 albuterol sulfate 90 mcg/actuation 2 puff inhalation QID PRN 06/06/22 aerosol inhaler shortness of breath or wheezing #6.7 grams ibuprofen 800 mg tablet 800 mg PO DAILY PRN pain #30 tabs 01/22/23 trazodone 100 mg tablet 100 mg PO BEDTIME PRN sleep #30 04/23/23 tabs venlafaxine 75 mg tablet See Rx Instructions .Route 04/23/23 .COMPLEX #90 tabs Allergies Allergy/AdvReac Type Severity Reaction Status Date / Time meperidine [From DEMEROL] Allergy Mild Itching Verified 06/22/23 13:41 buspirone Allergy Palpitation Verified 06/22/23 13:41 s Patient History Medical History (Updated 06/22/23 @ 14:07 by Rivera Perry MD) Cholelithiasis Chronic right shoulder pain Tendinitis Depression Fibromyalgia Surgical History History of ankle surgery Social History household members: family Smoking Status: Never smoker alcohol intake: current Smoking Status: Never smoker alcohol intake frequency: a few times a week Alcohol type: wine Substance Use Type: does not use Exam Narrative Exam Narrative: I saw her across the huerta and she appeared to be well in no distress sitting on the edge of the bed. Initial Vital Signs Initial Vital Signs: Vital Signs Temperature 97.6 F 06/22/23 13:42 Pulse Rate 128 H 06/22/23 13:42 Respiratory Rate 18 06/22/23 13:42 Blood Pressure 124/92 H 06/22/23 13:42 Pulse Oximetry 96 06/22/23 13:42 Oxygen Delivery Method Room Air 06/22/23 13:42 Course Orders Ordered: ED Orders 06/22/23 13:53 Consult to TEST CONSULTANT - Log Processor Operator Stat Vital Signs Vital signs: Vital Signs - 8 hr 06/22/23 13:42 Temperature 97.6 F Pulse Rate 128 H Respiratory Rate 18 Blood Pressure 124/92 H Pulse Oximetry 96 Oxygen Delivery Method Room Air MDM - Psych MDM Narrative Medical decision making narrative: Patient had been here just for a few minutes I saw her as I walked by in the huerta and I went to see her in the room and she had left. Discharge Plan Departure Patient Disposition: Elopement Clinical Impression: Patient left without being seen, Acute shoulder pain Prescriptions: No Action acetaminophen 500 mg capsule 1,000 mg PO Q6H PRN (Reason: fever or pain) Qty: 60 2RF loratadine 10 mg tablet 10 mg PO DAILY Qty: 90 1RF Hold Instructions: Patient discharged from clinic fluticasone propionate [Flonase Allergy Relief] 50 mcg/actuation spray,suspension 1 spray NASAL DAILY Qty: 18.2 3RF Rx Instructions: administer into each nostril hydroxyzine pamoate 25 mg capsule 25 mg PO BID Qty: 60 5RF Hold Instructions: Patient discharged from clinic albuterol sulfate 90 mcg/actuation HFA aerosol inhaler 2 puff INHALATION QID PRN (Reason: shortness of breath or wheezing) Qty: 6.7 11RF ibuprofen 800 mg tablet 800 mg PO DAILY PRN (Reason: pain) Qty: 30 0RF omeprazole 20 mg capsule,delayed release(DR/EC) 20 mg PO DAILY Hold Instructions: Temporary pantoprazole venlafaxine 75 mg tablet See Rx Instructions .ROUTE .COMPLEX Qty: 90 0RF Rx Instructions: two tabs in the morning and one tab in the afternoon trazodone 100 mg tablet 100 mg PO BEDTIME PRN (Reason: sleep) Qty: 30 0RF Stand Alone Forms: Patient Portal/API
--- NOTE | 2023-06-22 14:08 | CM.SWNOTE ---
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 Debbie Zuluaga, INDUSTRIAL SPECIALIST
== END 2023-06-22 14:02 | disposition left against medical advice (07) ==
PROVIDERS: Emergency Provider Family Medicine Addiction Medicine
CPT/HCPCS: 99281

== ENCOUNTER 2023-06-24 11:41 | Emergency (ER) | payer OTHER, MEDICAID, SELFPAY ==
[2020-04-30 09:21] VITALS: BMI 29.0
[2023-06-24 11:48] VITALS: BP 186/102; PULSE 133; RESP 22; TEMP 36.4; O2SAT 97; BMI 30.7
--- NOTE | 2023-06-24 11:51 | DI.RAD.S_ITS ---
PROCEDURE: XR CLAVICLE LT INDICATIONS: hx of clavicle fracture status post repair TECHNIQUE: 2 views of the clavicle were acquired. COMPARISON: [facility], [place], XR CLAVICLE LT, 04/18/2023, 17:28. FINDINGS: Bones: Status post distal clavicle fixation using plate and screw construct with expected postoperative appearance. Distal end of clavicle is superior to the acromion. No new fractures identified. Soft tissues: No suspicious soft tissue calcifications. IMPRESSION: Status post fixation of comminuted distal clavicle fracture. Distal aspect of clavicle is superior to the acromion. Dictated by: Francisca Callejas M.D. on 06/24/2023 at 12:40 Approved by: Francisca Callejas M.D. on 06/24/2023 at 12:43
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
[2023-06-24] MEDS: ONDANSETRON 4 MG ODT SL (12:01)
[2023-06-24 12:37] VITALS: BP 180/102; PULSE 99; RESP 18; O2SAT 97
[2023-06-24] MEDS: IBUPROFEN 400 MG TABLET 800 MG PO (12:49)
[2023-06-24 13:03] VITALS: BP 172/94; PULSE 99; RESP 14; O2SAT 95
== END 2023-06-24 13:05 | disposition home or self-care (01) ==
PROVIDERS: Emergency Provider Emergency Medicine
DX: M25.512 Pain in left shoulder (principal); Z00.8 Encounter for other general examination
CPT/HCPCS: 73000; 99283

== ENCOUNTER 2023-08-02 07:39 | Emergency (ER) | payer OTHER, MEDICAID, SELFPAY ==
[2020-04-30 09:21] VITALS: BMI 29.0
--- NOTE | 2023-08-02 07:45 | DI.RAD.S_ITS ---
PROCEDURE: XR CHEST 1V INDICATIONS: SOB and cough TECHNIQUE: One view of the chest was acquired. COMPARISON: [facility], [place], XR CLAVICLE LT, 06/24/2023, 12:02. [facility], [place], XR CHEST 1V, 05/22/2022, 17:27. FINDINGS: Surgical changes and devices: Left clavicle fixation hardware. No acute changes to the hardware. Lungs and pleura: Lungs are clear. No pleural effusions or pneumothorax. Mediastinum: Mediastinal contours appear normal. Heart size is normal. Bones and chest wall: No suspicious bony lesions. Overlying soft tissues appear unremarkable. IMPRESSION: No acute cardiopulmonary abnormality is seen. Dictated by: Zehra Brown M.D. on 08/02/2023 at 8:47 Approved by: Zehra Brown M.D. on 08/02/2023 at 8:48
[2023-08-02 07:47] VITALS: BP 139/69; PULSE 104; RESP 96; TEMP 36.1; O2SAT 97; BMI 29.9
[2023-08-02 08:39] LABS: Influenza A - CEPHEID Flu A NEGATIVE (NEGATIVE); Influenza B - CEPHEID Flu B NEGATIVE (NEGATIVE); Respiratory Syncytial Virus Negative (Negative)
[2023-08-02 08:43] LABS: COVID-19 CEPHEID 4-PLEX PCR Negative (Negative)
[2023-08-02 09:03] VITALS: PULSE 98; O2SAT 98
[2023-08-02 09:30] VITALS: PULSE 111; O2SAT 96
--- NOTE | 2023-08-02 09:39 | ED_ITS ---
HPI - General Adult General Chief complaint: Upper Respiratory Symptoms Stated complaint: Sob, cough Time Seen by Provider: 08/02/23 07:45 Source: patient Mode of arrival: Ambulatory Limitations: no limitations History of Present Illness HPI narrative: Patient is a 48-year-old female. Has a history of asthma. Is here for evaluation of a cough and shortness of breath and heaviness on her chest and feeling like she can not take a deep breath and fluid on her chest. Her symptoms actually been going on for the past several weeks. She would COVID at the end of last month in her symptoms have been persistent since then. She is seen her primary doctor. An outpatient chest x-ray was ordered. She has not been able to get that chest x-ray. She has a follow-up in a couple days with her primary doctor. She is tried [id number] cough and cold preparations without any improvement. She is some chest discomfort but that is with coughing. Subjective fevers. Nausea but no vomiting. Related Data Home Medications Medication Instructions Recorded Confirmed omeprazole 20 mg capsule,delayed 20 mg PO DAILY 06/08/19 04/18/23 release Previous Rx's Medication Instructions Recorded acetaminophen 500 mg capsule 1,000 mg (2 x 500 mg) PO Q6H PRN 10/07/19 fever or pain #60 caps loratadine 10 mg tablet 10 mg PO DAILY #90 tabs 08/12/21 fluticasone propionate 50 1 spray intranasal DAILY #18.2 mL 08/15/21 mcg/actuation nasal spray,suspension (Flonase Allergy Relief) hydroxyzine pamoate 25 mg capsule 25 mg PO BID #60 caps 09/05/21 albuterol sulfate 90 mcg/actuation 2 puff inhalation QID PRN 06/06/22 aerosol inhaler shortness of breath or wheezing #6.7 grams ibuprofen 800 mg tablet 800 mg PO DAILY PRN pain #30 tabs 01/22/23 trazodone 100 mg tablet 100 mg PO BEDTIME PRN sleep #30 04/23/23 tabs venlafaxine 75 mg tablet See Rx Instructions .Route 04/23/23 .COMPLEX #90 tabs benzonatate 100 mg capsule 100 mg PO BID PRN cough #14 caps 08/02/23 prednisone 20 mg tablet 20 mg PO DAILY 7 days #7 tabs 08/02/23 Allergies Allergy/AdvReac Type Severity Reaction Status Date / Time meperidine [From DEMEROL] Allergy Mild Itching Verified 06/24/23 11:58 buspirone Allergy Palpitation Verified 06/24/23 11:58 s Review of Systems Constitutional Constitutional: Reports system reviewed and no additional complaints, except as documented Cardiovascular Cardiovascular: Reports system reviewed and no additional complaints, except as documented Respiratory Respiratory: Reports system reviewed and no additional complaints, except as documented Gastrointestinal Gastrointestinal: Reports system reviewed and no additional complaints, except as documented Genitourinary Genitourinary: Reports system reviewed and no additional complaints, except as documented Integumentary/Breasts Skin/Breast: Reports system reviewed and no additional complaints, except as documented Hematologic/Lymphatic On Anticoagulants: No Patient History Medical History (Updated 08/02/23 @ 10:59 by Da Barcenas DO) Cholelithiasis Chronic right shoulder pain Tendinitis Depression Fibromyalgia Surgical History History of ankle surgery Social History household members: family Smoking Status: Never smoker alcohol intake: current Smoking Status: Never smoker alcohol intake frequency: a few times a week Alcohol type: wine Substance Use Type: does not use Exam Initial Vital Signs Initial Vital Signs: Vital Signs Temperature 96.9 F L 08/02/23 07:47 Pulse Rate 104 H 08/02/23 07:47 Respiratory Rate 96 H 08/02/23 07:47 Blood Pressure 139/69 08/02/23 07:47 Pulse Oximetry 97 08/02/23 07:47 Oxygen Delivery Method Room Air 08/02/23 07:47 Const General: cooperative and No ill appearing [facility] Head: normal to inspection and normocephalic Resp Effort & Inspection: normal respiratory effort and cough Auscultation: clear to auscultation bilaterally Cardio Rate: tachycardic Rhythm: regular rhythm Skin General: no rashes or lesions noted Neuro General: patient alert, patient awake and moves all extremities Extrem General: capillary refill normal Scores GCS Kiersten coma scale eye opening: Spontaneous Burton coma scale verbal response: Orientated Kiersten coma scale motor response: Obey commands Burton coma scale total score: 15 PERC Score Age greater than or equal to 50 years: No Heart rate greater than or equal to 100 bpm: Yes Room Air O2 Sat less than 95%: No Unilateral leg swelling: No Recent trauma or surgery: No Hemoptysis: No Prior PE or DVT: No Hormone Use: No Total PERC Score: 1 Course Orders Ordered: ED Orders 08/02/23 07:45 XR chest 1V Stat 08/02/23 07:54 Covid-19 + FLU A/B + RSV - PCR Stat 08/02/23 10:00 Basic Metabolic Panel Stat Complete Blood Count AUTO DIFF Stat D Dimer Stat Test Serum,Qual Stat Discontinued Medications Benzonatate (Benzonatate 100 Mg Capsule) 100 mg PO NOW ONE Stop: 08/02/23 09:39 Last Admin: 08/02/23 09:53 Dose: 100 mg Documented By: CTS Vital Signs Vital signs: Vital Signs - 8 hr 08/02/23 07:47 08/02/23 09:03 08/02/23 09:30 Temperature 96.9 F L Pulse Rate 104 H 98 H 111 H Respiratory Rate 96 H Blood Pressure 139/69 Pulse Oximetry 97 98 96 Oxygen Delivery Method Room Air 08/02/23 10:00 Temperature Pulse Rate 103 H Respiratory Rate Blood Pressure Pulse Oximetry 99 Oxygen Delivery Method Medical Decision Making Lab Data Lab results reviewed: Yes I reviewed the patient's lab results. 08/02/23 10:00 08/02/23 10:00 Labs: Lab Results 08/02/23 08/02/23 Range/Units 07:54 10:00 WBC 14.5 H (4.5-11.0) X10^3/uL RBC 3.95 L (4.0-5.2) X10^6/uL Hgb 12.3 (12.0-16.0) g/dL Hct 37.0 (36-46) % MCV 93.8 (80-100) fL MCH 31.2 (26-34) PG MCHC 33.3 (30-36) % RDW 14.9 H (11.6-14.8) % Plt Count 436 H (150-400) X10^3/uL Neut % (Auto) 61.5 (50-75) % Lymph % (Auto) 22.2 L (25-40) % Bremer % (Auto) 8.7 (3-14) % Eos % (Auto) 6.9 H (2-4) % Baso % (Auto) 0.7 (0-2) % Neut # (Auto) 8900 H (7898-8202) /uL Lymph # (Auto) 3200 (2841-2256) /uL Bremer # (Auto) 1300 H (0-900) /uL Eos # (Auto) 1000 H (0-450) /uL Baso # (Auto) 100 (0-100) /uL D-Dimer 875 H (<500) ng/ml Sodium 137 (137-145) mmol/L Potassium 3.8 (3.4-5.1) mmol/L Chloride 103 (98-107) mmol/L Carbon Dioxide 23 (22-32) mmol/L BUN 14 (7-17) mg/dL Creatinine 0.55 (0.52-1.04) mg/dL Estimated GFR > 60 (>60) mL/min BUN/Creatinine Ratio 25.5 H (6-22) Glucose 94 (70-100) mg/dL Calcium 9.1 (8.4-10.2) mg/dL Serum , Qual Negative (Negative) SARS-CoV-2 (PCR) Negative (Negative) Influenza A (RT-PCR) Flu a negative (NEGATIVE) Influenza B (RT-PCR) Flu b negative (NEGATIVE) RSV (PCR) Negative (Negative) Imaging Data Chest x-ray: Radiologist's Impression: PROCEDURE: XR CHEST 1V INDICATIONS: SOB and cough TECHNIQUE: One view of the chest was acquired. COMPARISON: [facility], , XR CLAVICLE LT, 06/24/2023, 12:02. [facility], , XR CHEST 1V, 05/22/2022, 17:27. FINDINGS: Surgical changes and devices: Left clavicle fixation hardware. No acute changes to the hardware. Lungs and pleura: Lungs are clear. No pleural effusions or pneumothorax. Mediastinum: Mediastinal contours appear normal. Heart size is normal. Bones and chest wall: No suspicious bony lesions. Overlying soft tissues appear unremarkable. IMPRESSION: No acute cardiopulmonary abnormality is seen. MDM Narrative Medical decision making narrative: Patient has had symptoms for the past month or maybe even a little longer. Chest x-ray shows no signs of pneumonia. Her COVID/flu/RSV are negative however there is still a strong possibility of an other upper respiratory infection. Is having chest pain however this is with the cough. She does have a D-dimer that is between 500-1,000 however according to the YEARS criteria no CT is warranted. She has a follow-up with her primary doctor already scheduled for this week. Will place her on prednisone as she does have a history of asthma. Will try Tessalon Perles. No indication for antibiotics. She was given return precautions. She expressed understanding and agreement. Discharge Plan Departure Patient Disposition: Home Clinical Impression: Cough, Shortness of breath Instructions: Cough (Alternative Therapy), Cough Activity Restrictions/Additional Instructions: Recommend that you keep your scheduled medical appointment with your primary doctor later this week. He was the cough medicine in the steroids as directed. Return to the emergency department for new or worsening symptoms. Prescriptions: New prednisone 20 mg tablet 20 mg PO DAILY 7 Days Qty: 7 0RF benzonatate 100 mg capsule 100 mg PO BID PRN (Reason: cough) Qty: 14 0RF No Action acetaminophen 500 mg capsule 1,000 mg PO Q6H PRN (Reason: fever or pain) Qty: 60 2RF loratadine 10 mg tablet 10 mg PO DAILY Qty: 90 1RF Hold Instructions: Patient discharged from clinic fluticasone propionate [Flonase Allergy Relief] 50 mcg/actuation spray,suspension 1 spray NASAL DAILY Qty: 18.2 3RF Rx Instructions: administer into each nostril hydroxyzine pamoate 25 mg capsule 25 mg PO BID Qty: 60 5RF Hold Instructions: Patient discharged from clinic albuterol sulfate 90 mcg/actuation HFA aerosol inhaler 2 puff INHALATION QID PRN (Reason: shortness of breath or wheezing) Qty: 6.7 11RF ibuprofen 800 mg tablet 800 mg PO DAILY PRN (Reason: pain) Qty: 30 0RF omeprazole 20 mg capsule,delayed release(DR/EC) 20 mg PO DAILY Hold Instructions: Temporary pantoprazole venlafaxine 75 mg tablet See Rx Instructions .ROUTE .COMPLEX Qty: 90 0RF Rx Instructions: two tabs in the morning and one tab in the afternoon trazodone 100 mg tablet 100 mg PO BEDTIME PRN (Reason: sleep) Qty: 30 0RF Referrals: Miscellaneous,Doctor, MD [Primary Care Provider] - Stand Alone Forms: Patient Portal/API
[2023-08-02] MEDS: BENZONATATE 100 MG CAPSULE PO (09:53)
[2023-08-02 10:00] VITALS: PULSE 103; O2SAT 99
[2023-08-02 10:07] LABS: Add Manual Diff / Slide Review NO; Basophils Absolute Auto 100 /uL (0-100); Basophils Percent Auto 0.7 % (0-2); Eosinophils Absolute Auto 1000 /uL (0-450); Eosinophils Percent Auto 6.9 % (2-4); Hemoglobin 12.3 g/dL (12.0-16.0); Lymphocytes Absolute Auto 3200 /uL (1100-4500); Lymphocytes Percent Auto 22.2 % (25-40); Mean Corpuscular HGB Conc 33.3 % (30-36); Mean Corpuscular Hemoglobin 31.2 PG (26-34); Mean Corpuscular Volume 93.8 fL (80-100); Monocytes Absolute Auto 1300 /uL (0-900); Monocytes Percent Auto 8.7 % (3-14); Neutrophils Absolute Auto 8900 /uL (1500-7000); Neutrophils Percent Auto 61.5 % (50-75); Platelet Count 436 X10^3/uL (150-400); Red Blood Cell Count 3.95 X10^6/uL (4.0-5.2); Red Cell Distribution Width 14.9 % (11.6-14.8); White Blood Cell Count 14.5 X10^3/uL (4.5-11.0)
[2023-08-02 10:15] LABS: D Dimer 875 ng/ml (<500)
[2023-08-02 10:21] LABS: BUN Creatinine Ratio 25.5 (6-22); Blood Urea Nitrogen 14 mg/dL (7-17); Calcium 9.1 mg/dL (8.4-10.2); Carbon Dioxide 23 mmol/L (22-32); Chloride 103 mmol/L (98-107); Estimated Glomerular Filt Rate > 60 mL/min (>60); Glucose 94 mg/dL (70-100); HEMOLYSIS < 15 (0-50); Potassium 3.8 mmol/L (3.4-5.1); Sodium 137 mmol/L (137-145)
[2023-08-02 10:27] LABS: Pregnancy Test Serum,Qual Negative (Negative)
[2023-08-02 10:30] VITALS: PULSE 107; O2SAT 99
[2023-08-02 11:00] VITALS: PULSE 109; O2SAT 97
== END 2023-08-02 11:16 | disposition home or self-care (01) ==
PROVIDERS: Emergency Provider Emergency Medicine
DX: R05.9 Cough, unspecified (principal); R06.02 Shortness of breath; Z20.822 Contact with and (suspected) exposure to COVID-19
CPT/HCPCS: 0241U; 36415; 71045; 80048; 84703; 85025; 85379; 99284

== ENCOUNTER 2024-04-28 17:04 | Emergency (ER) | payer OTHER, MEDICAID, SELFPAY ==
[2020-04-30 09:21] VITALS: BMI 29.0
[2024-04-28 17:14] VITALS: BP 124/80; PULSE 82; RESP 18; TEMP 36.6; O2SAT 98; BMI 29.1
--- NOTE | 2024-04-28 17:19 | DI.RAD.S_ITS ---
PROCEDURE: XR WRIST RT MIN 3V INDICATIONS: known fracture, pain TECHNIQUE: 4 views of the wrist were acquired. COMPARISON: None. FINDINGS: Overlying cast material limits evaluation. Acute, obliquely oriented fracture of the distal ulnar diaphysis with intra-articular extension to the ulnocarpal joint and minimal displacement, which is near anatomic. Mild irregularity of the radial cortex of the distal radius, which may represent an additional, minimally displaced fracture. Borderline widening of the scapholunate interval up to 3 mm, which may be projectional in etiology. IMPRESSION: 1. Acute, obliquely oriented distal ulnar intra-articular fracture in near anatomic alignment. 2. Possible additional fracture of the distal radius. Attention on follow-up radiographs recommended. Dictated by: Pee Burciaga M.D. on 04/28/2024 at 18:44 Approved by: Pee Burciaga M.D. on 04/28/2024 at 18:48
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
[2024-04-28 18:43] VITALS: BP 97/64; PULSE 80; RESP 18; TEMP 36.8; O2SAT 97
== END 2024-04-28 19:00 | disposition home or self-care (01) ==
PROVIDERS: Emergency Provider Physician Assistant
DX: S52.09 Other fracture of upper end of ulna (principal)
CPT/HCPCS: 73110; 99282; 99283

== ENCOUNTER → 2024-07-20 11:09 | Outpatient (CLI) | payer OTHER, SELFPAY ==
[2020-04-30 09:21] VITALS: BMI 29.0
[2024-07-20 12:01] LABS: Add Manual Diff / Slide Review NO; Basophils Absolute Auto 100 /uL (0-100); Eosinophils Absolute Auto 300 /uL (0-450); Eosinophils Percent Auto 4.1 % (2-4); Hematocrit 40.6 % (36-46); Hemoglobin 13.3 g/dL (12.0-16.0); Lymphocytes Absolute Auto 2400 /uL (1100-4500); Lymphocytes Percent Auto 31.1 % (25-40); Mean Corpuscular HGB Conc 32.7 % (30-36); Mean Corpuscular Hemoglobin 30.3 PG (26-34); Mean Corpuscular Volume 92.7 fL (80-100); Monocytes Absolute Auto 600 /uL (0-900); Monocytes Percent Auto 7.5 % (3-14); Neutrophils Absolute Auto 4300 /uL (1500-7000); Neutrophils Percent Auto 56.3 % (50-75); Platelet Count 335 X10^3/uL (150-400); Red Blood Cell Count 4.38 X10^6/uL (4.0-5.2); Red Cell Distribution Width 15.7 % (11.6-14.8); White Blood Cell Count 7.6 X10^3/uL (4.5-11.0)
[2024-07-20 12:17] LABS: HEMOLYSIS < 15 (0-50); Iron 41 ug/dL (37-170)
[2024-07-20 12:23] LABS: Alanine Aminotransferase 19 IU/L (<35); Albumin 4.6 g/dL (3.5-5.0); Albumin Globulin Ratio 1.5 (1.0-2.8); Alkaline Phosphatase 74 U/L (38-126); Aspartate Aminotransferase 29 IU/L (14-36); BUN Creatinine Ratio 22.8 (6-22); Bilirubin Total 0.6 mg/dL (0.2-1.3); Blood Urea Nitrogen 18 mg/dL (7-17); Calcium 9.3 mg/dL (8.4-10.2); Carbon Dioxide 26 mmol/L (22-32); Chloride 105 mmol/L (98-107); Cholesterol 195 mg/dL (140-199); Estimated Glomerular Filt Rate > 60 mL/min (>60); Glucose 115 mg/dL (70-100); HDL Cholesterol 37 mg/dL (40-60); HEMOLYSIS < 15 (0-50); LDL Cholesterol Calculated 142 mg/dL (<100); Potassium 4.4 mmol/L (3.4-5.1); Sodium 137 mmol/L (137-145); Total Protein 7.6 g/dL (6.3-8.2); Triglycerides 80 mg/dL (35-150)
[2024-07-20 12:32] LABS: Percent Iron Saturation 11 % (15-50); Total Iron Binding Capacity 361 ug/dL (265-497); Transferrin 323 mg/dL (206-381)
[2024-07-20 12:54] LABS: Ferritin 6 ng/mL (6-137)
[2024-07-20 16:28] LABS: Vitamin D 25 Hydroxy (D3) 27.6 ng/mL (30.0-100.0)
== END ==
PROVIDERS: PCP Family Medicine; Referring Provider Family Medicine; Visit Provider Family Medicine
DX: Z00.00 Encounter for general adult medical examination without abnormal findings (principal)
CPT/HCPCS: 36415; 80053; 80061; 82306; 82728; 83540; 83550; 85025